=== PATIENT | male | born 2005 | race Caucasian/White ===

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

== ENCOUNTER 2023-02-12 12:50 | Emergency (ER) | payer OTHER, SELFPAY ==
--- NOTE | ~2023-02-12 | XR_ITS ---
EXAMINATION: XR WRIST, LEFT XR HAND, LEFT CLINICAL INFORMATION: Pain. Injury. COMPARISON: None available. TECHNIQUE: Scaphoid view of the left wrist and PA, lateral, and oblique views of the left hand. FINDINGS: LEFT WRIST: The bones and soft tissues appear unremarkable. No fracture identified. Alignment is anatomic. Joint spaces appear maintained. No erosions or soft tissue calcifications. LEFT HAND: The bones and soft tissues appear unremarkable. No fracture identified. Alignment is anatomic. Joint spaces appear maintained. No erosions or soft tissue calcifications. XR/XR hand wrist LT IMPRESSION: Normal plain film examinations of the left hand and wrist.
[2023-02-12 13:03] VITALS: BP 148/100; BP 165/96; PULSE 80; RESP 16; TEMP 36.6; O2SAT 98; O2SAT 99; BMI 34.1
--- NOTE | 2023-02-12 13:53 | PC.NURSE ---
pt asked tech if he could go outside to smoke, tech consulted with this nurse and I stated he was not allowed to go smoke as his c-spine collar has not be cleared and removed by a provider yet, this was communicated to the patient. upon walking by the patients room it was noticed that the patient was no longer in the room. the patient had not yet been evaluated by the provider, will notify charge.
--- NOTE | 2023-02-12 13:59 | PC.NURSE ---
security came to this nurse and stated she had stopped a patient who had a neck brace on who was going outside, security stated she didnt feel that he was cleared to go outside, pt went outside anyway, pt then came back into the hospital- security asked them to wait while they came to speak with nursing staff however, while doors were open patient walked back into [facility] room with their parent. this nurse went into the room and spoke with the patient and told him it was unacceptable for him to leave to smoke a cigarette after staff had told him he could not leave considering he was complaining of 10/10 neck pain and in a collar. the father who was now in the room also stated tot he patient that he knew better. currently the patient is a&ox3, ambulates independently with a steady gait, all of the patients extremities are moving independently, neck brace still intact, pt verbally stated that he will not leave to smoke and stated he understands the consequences of ambulating with neck pain and in c-spine precautions/neck brace.
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
--- NOTE | 2023-02-12 15:20 | PC.NURSE ---
abrasion on right forarm bandaged with non-adherent pad and gauze wrap.
== END 2023-02-12 15:59 | disposition home or self-care (01) ==
PROVIDERS: Emergency Provider Emergency Medicine
DX: S60.512A Abrasion of left hand, initial encounter (principal); S63.92XA Sprain of unspecified part of left wrist and hand, initial encounter; M25.532 Pain in left wrist; V23.49XA Other motorcycle driver injured in collision with car, pick-up truck or van in traffic accident, initial encounter; Y93.9 Activity, unspecified; Y92.410 Unspecified street and highway as the place of occurrence of the external cause; Y99.9 Unspecified external cause status; Z79.899 Other long term (current) drug therapy
CPT/HCPCS: 73110; 73130; 99283

== ENCOUNTER 2024-08-26 18:20 | Emergency (ER) | payer OTHER, SELFPAY ==
[2024-08-26 18:28] VITALS: BP 160/90; PULSE 84; O2SAT 99
[2024-08-26 18:34] VITALS: BP 135/76; PULSE 59; RESP 16; TEMP 36.1; O2SAT 99; BMI 36.2
--- NOTE | 2024-08-26 18:34 | ED.LOWEXIN ---
HPI - Extremity Injury (Lower) General Chief Complaint: Extremity Injury, Lower Stated Complaint: gout in R foot, swollen, 06/01 Time Seen by Provider: 08/26/24 18:32 Source: patient, EMS, RN notes reviewed and old records reviewed Mode of arrival: EMS History of Present Illness ED Provider: Ryann Munoz PA-C HPI Narrative: 19yo M w/PMHx gout, HTN, anxiety, c/o right foot pain & swelling x 3 days. Admits pain is similar to prior gout flare. Denies known injury/trauma, fall, numbness, tingling, fever. Took OTC medications w/o relief. Related Data Previous Rx's ?Medication ?Instructions ?Recorded cephalexin 500 mg capsule 500 mg PO BID #14 caps 04/07/22 sulfamethoxazole 800 1 tab PO BID #14 tabs 04/07/22 mg-trimethoprim 160 mg tablet (Bactrim DS) naproxen 500 mg tablet 500 mg PO BID PRN pain 10 days #20 08/26/24 tabs prednisone 20 mg tablet 40 mg (2 x 20 mg) PO DAILY 5 days 08/26/24 #10 tabs Allergies Allergy/AdvReac Type Severity Reaction Status Date / Time No Known Allergies Allergy Verified 08/26/24 18:35 Review of Systems Review of Systems: Yes all other systems are reviewed and are negative Constitutional: Constitutional: Reports as per [facility] Past Medical History Attestation statement: The following information was validated with the patient. Source: old records reviewed Social History Social History Alcohol intake: current Alcohol intake frequency: holidays/special occasions only Physical Exam Vital Signs: Vital Signs: Last Vital Signs Temp 96.9 F 08/26/24 18:34 Pulse 59 08/26/24 18:34 Resp 16 08/26/24 18:34 BP 135/76 08/26/24 18:34 Pulse Ox 99 08/26/24 18:34 O2 Del Method Room Air 08/26/24 18:34 BMI result Body Mass Index 36.2 Const: General: cooperative, healthy appearing and no acute distress Orientation/consciousness: patient oriented x3 Limitations: no limitations HEENT: Head: Yes normal to inspection and Yes atraumatic Ears: hearing grossly normal bilaterally General nose exam: Normal external nose present Face and sinus: Yes normal facial exam Eyes: General: appearance normal, both eyes and all related structures EOM: EOMs intact bilaterally Neck: Neck: Yes normal visual inspection and Yes no meningeal signs Resp: Effort & Inspection: normal respiratory effort and no respiratory distress Cardio: Rate: regular rate Skin: Rashes: no rashes Wounds: no wounds Neuro: General: patient oriented x3, tone normal and no meningeal signs Cranial nerves: Yes CN's II-XII intact bilaterally Gait exam (Neuro): Normal gait present Extrem: Other: right foot with appreciable swelling > great toe with faint erythema. +ttp, no warmth, +pain w/ROM, NV intact no pitting edema Medical Decision Making Medical Decision Making MDM Narrative: 19yo M w/PMHx gout, HTN, anxiety, c/o right foot pain & swelling x 3 days. On exam vital signs stable, NAD, nontoxic appearing, physical exam as noted above consistent with gout. Low suspicion for fracture, cellulitis, septic joint/arthritis, DVT Plan: Gout treatment, PCP/rheumatology follow-up. X-ray offered however patient declined Please refer to course for remaining clinical decision making, interpretation of labs/imaging results, and discussions with consultants and/or family members. Results discussed with patient including worrisome signs and symptoms and strict return precautions, and when to return to the emergency department. They verbalized understanding and feel safe for discharge at this time. Differential Diagnosis Differential Diagnoses: The differential diagnosis associated with the presentation includes As above Independent Interpretation I performed an independent interpretation of an: Plain X-Ray Radiology Impression Discussion of test interpretation with radiology: I have reviewed the radiologist's reading. External Record Review External record reviewed: Inpatient record, Office record, Outpatient record, Prior outpatient labs, Prior outpatient radiology, Primary care record and Outside ED record Tests considered The following testing was considered but not selected: As above Prescription Management I considered prescription management with: Pain Medication and Antibiotic Chronic Conditions Patient?s care impacted by: Other Social Determinants Patient?s care significantly limited by Social Determinants of Health including: Other Social Determinant of Health Discharge Plan Discharge Clinical Impression: Gout Patient Disposition: Home, Self-Care Instructions: Low Purine Diet (ED), Gout (ED) Additional Instructions: Please take naproxen and prednisone as prescribed until completion. Naproxen is similar to ibuprofen/Motrin/Aleve, do not take both medications, please only take 1 and please take with food In addition take Tylenol If her symptoms persist or worsen, follow up becomes increasingly swollen, red, discolored, looks infected return to the ED Prescriptions: New prednisone 20 mg tablet 40 mg PO DAILY 5 Days Qty: 10 0RF naproxen 500 mg tablet 500 mg PO BID PRN (Reason: pain) 10 Days Qty: 20 0RF No Action sulfamethoxazole-trimethoprim [Bactrim DS] 800-160 mg tablet 1 tab PO BID Qty: 14 0RF cephalexin 500 mg capsule 500 mg PO BID Qty: 14 0RF Referrals: [facility] [Provider Group] Print Language: Citizen Of [place]
--- OUTSIDE RECORDS SUMMARY | 2024-08-26 18:46 | XMS_ITS ---
Author Organization [employer] endband cutter hand KONZA Care Team Providers Care Tile Edger Name Role Phone Karen Blanchard MD Primary Care Provider Encounters Encounter Date Encounter Type Encounter Diagnosis Care Provider Facility Start: 03-05-2021 12:00-0400 End: 07-26-2024 02:56-0500 Orders Only Ирина Alcaraz Employee Representative Work Phone: [facility] Department of Urology, [place] Payers Date Payer Normalized Payer Medicaid [id number] Plan of Treatment Date Care Activity Detail Author Start: 04-23-2024 Administration of influenza vaccine INFLUENZA (#1) [facility] Start: 04-23-2024 COVID-19 Vaccine ( season) COVID-19 Vaccine ( season) [facility] Start: 02-10-2016 HIV screening ADOLESCENT HIV SCREENING [facility] Social History Date Type Detail Facility Start: 09-19-2021 End: 05-07-2023 History of Social function [facility] Start: 09-19-2021 End: 05-07-2023 Tobacco use panel [facility] History of tobacco use Current smoker [facility] Anything else about your child you'd like help with? Not on file [facility] Additional Source Comments Care Teams (unrecognized sec tion and content) Tile Edger Relationship Specialty Start Date End Date Karen Blanchard MD [address] [place] [address] [address] [place] [address] PCP - General General Pediatrics 09/30/20 Tile Edger Relationship Specialty Start Date End Date Karen Blanchard MD [address] [address] PCP - General General Pediatrics 09/30/20 Tile Edger Relationship Specialty Start Date End Date Karen Blanchard MD [address] [address] PCP - General General Pediatrics 09/30/20 Tile Edger Relationship Specialty Start Date End Date Karen Blanchard MD [address] [facility] [address] [place] [address] PCP - General General Pediatrics 09/30/20 This clinical document has been generated using [employer] software that has been certified by the Office of the National Coordinator for Health Information Technology (ONC 15.99.04.3023.Diam.[id number]) and the National Committee for Major Sales Associate (NCQA, as an eMeasure certified technology). FOR RECORDS PERTAINING TO PATIENTS WHO ARE OR HAVE BEEN ENROLLED IN A CHEMICAL DEPENDENCY/SUBSTANCEABUSE PROGRAM, SOME INFORMATION MAY BE OMITTED. This clinical summary was aggregated from multiple sources. Caution should be exercised in using it in the provision of clinical care. This summary normalizes information from multiple sources, and as a consequence, information in this document may materially change the coding, format and clinical context of patient data. In addition, data may be omitted in some cases. CLINICAL DECISIONS SHOULD BE BASED ON THE PRIMARY CLINICAL RECORDS. [employer] provides no warranty or guarantee of the accuracy or completeness of information in this document.The following information is based on time limited clinical information
== END 2024-08-26 18:48 | disposition home or self-care (01) ==
PROVIDERS: Emergency Provider Emergency Medicine Emergency Medical Services; PCP Student in an Organized Health Care Education/Training Program
DX: M10.9 Gout, unspecified (principal); M79.671 Pain in right foot
CPT/HCPCS: 99281; 99283

== ENCOUNTER 2024-11-23 23:34 | Emergency (ER) | payer OTHER, SELFPAY ==
[2024-11-23 23:41] VITALS: BP 128/88; PULSE 106; O2SAT 98
--- NOTE | 2024-11-23 23:53 | MHC.EDTECH ---
patient changed over in family room, [facility] patient
--- NOTE | 2024-11-23 23:55 | ED_ITS ---
HPI - Psych General Chief Complaint: Psychiatric Symptoms Stated Complaint: SI no plan, ETOH Time Seen by Provider: 11/23/24 23:43 Source: patient and EMS Mode of arrival: EMS Limitations: no limitations History of Present Illness ED Provider: Dr. Marizol Hunt HPI Narrative: Patient comes to the emergency room via ambulance. According to the patient, he had a disagreement earlier today with his girlfriend. Patient states that he does have history of anxiety and depression but has never had any suicidal ideation. Patient states that he is unclear what made his girlfriend/ ex- fiance say that he was suicidal. Patient denies any physical altercations. Patient's has scratches in his left forearm, patient states that that is from playing with his dog. according to patient's triage note, EMS reported that patient was found with a large kitchen knife, and reportedly drank 4-5 drinks sober a course of a few hours. Related Data Previous Rx's ?Medication ?Instructions ?Recorded cephalexin 500 mg capsule 500 mg PO BID #14 caps 04/07/22 sulfamethoxazole 800 1 tab PO BID #14 tabs 04/07/22 mg-trimethoprim 160 mg tablet (Bactrim DS) naproxen 500 mg tablet 500 mg PO BID PRN pain 10 days #20 08/26/24 tabs prednisone 20 mg tablet 40 mg (2 x 20 mg) PO DAILY 5 days 08/26/24 #10 tabs Allergies Allergy/AdvReac Type Severity Reaction Status Date / Time No Known Allergies Allergy Verified 11/24/24 00:34 Review of Systems 2 Review of Systems: Constitutional : No Weight loss, No Fever, No Chills, No Night Sweats, No Fatigue, No Malaise ENT/Mouth : No Hearing loss, No Ear Pain, No Nasal Congestion, No Sinus Pain, No Hoarseness, No sore throat, No Rhinorrhea, No Swallowing Difficulty Eyes: No Eye Pain, No Swelling, No Redness, No Foreign Body, No Discharge, No Vision Changes Cardiovascular : No Chest Pain, No SOB, No Dyspnea on Exertion, No Orthopnea, No Edema, No Palpitations Respiratory : No Cough, No Sputum, No Wheezing, No Smoke Exposure, No Dyspnea Gastrointestinal : No Nausea, No Vomiting, No Diarrhea, No Constipation, No abdominal Pain, No Hematochezia, No Melena Genitourinary : no irregular bleeding, No Dysuria, No Urinary Frequency, No Hematuria, No Urinary Incontinence, No Urgency, No Flank Pain, No Urinary Flow Changes, No Hesitancy Musculoskeletal : No joint pain, No Myalgias, No Joint Swelling Skin : Complaining of scratches in the forearm, denies being lacerations Neuro : No Weakness, No Numbness, No Paresthesias, No Loss of Consciousness, No Dizziness, No Headache Psych : No Anxiety/Panic, No Depression, No SI/HI/AH/VH, No Social Issues, Heme/Lymph: No Bruising, No Bleeding,No Lymphadenopathy Endocrine : No Polyuria, No Polydipsia, No Temperature Intolerance [facility] Past Medical History Medical History Anxiety and depression Social History Social History Alcohol intake: current Alcohol intake frequency: holidays/special occasions only Alcohol type: beer and hard liquor Physical Exam 2 Vital Signs: Vital Signs: Last Vital Signs Temp 98.6 F 11/24/24 00:15 Pulse 77 11/24/24 00:15 Resp 17 11/24/24 00:15 BP 148/80 H 11/24/24 00:15 Pulse Ox 96 11/24/24 00:15 O2 Del Method Room Air 11/24/24 00:15 BMI result Body Mass Index 33.3 Const: Other: Appearance: Alert. Oriented X3. No acute distress. Eyes: Pupils equal, round and reactive to light. ENT: Pharynx normal. Neck: Normal inspection. Neck supple. No lymph nodes noted. No crepitus CVS: Normal heart rate and rhythm. Pulses normal. Normal S1 and S2 Respiratory: No respiratory distress. Breath sounds normal. No Wheezing. No rales Abdomen: Soft and nontender. No rigidity. No distention. Skin: Skin warm and dry. Normal skin color. Normal skin turgor. patient has superficial scratches in the left forearm. Extremities: No lower extremity edema. No Lacerations. No Rash Neuro: Oriented X 3. No motor deficit. No sensory deficit. Moving all extremities. No slurred speech. CN 2 through 12 grossly intact Psych: calm, cooperative, normal affect Course Course Course Narrative: patient is calm, cooperative, alert and oriented x3, clinically sober patient states that he is not sure what Made his ex-fiance state that he was suicidal. On physical exam, patient does have scratches in the left forearm, they seem to be fairly consistent with animals scratches, they are not thin linear cut toussaint by a knife patient is adamant that he is not suicidal or suicidal and he is also adamant that he did not make any SI statements. all of patient's labs pending care team consult pending. However, at this time, there is no indication to put the patient on a Section 12 Medical Decision Making Medical Decision Making MDM Narrative: patient's nurse was able to get in touch with the patient's ex-girlfriend. According to the patient's ex-girlfriend, she was concerned because he gave him all the money he has, a total of 200 dollars. She was concerned that he was saying goodbye. However, the patient states that the reason that he gave her 200 dollars, it is because he is so tired of his ex-girlfriend , she keeps calling him so many times that he can not keep up with it, and does not want to deal anymore with her specifically. So, he told her he has given her all of his money and to never bother him again. Patient states that he admits that he was emotional, crying but not suicidal or homicidal. Patient states that he is ready to move on. Patient just wants his ex-girlfriend to not communicate with him anymore. patient admits that he has been depressed and anxious, patient has a therapist. But he is adamant that he is not suicidal or homicidal Patient is completely alert and oriented x3, coherent, clinically sober. at this time, there is no reason to keep the patient on a Section 12 in patient will like to be discharged. My interpretation of labs: Patient's hematology and chemistry within normal limits, U tox negative, ETOH 133. Patient as mentioned above is completely coherent, ambulatory with steady state, clinically sober Differential Diagnosis Differential Diagnoses: The differential diagnosis associated with the presentation includes ( anxiety, depression, relationship problems) Lab Data [facility] Lab Attestation statement: I reviewed the patient's lab results. 11/24/24 00:16 11/24/24 00:15 Labs: Lab Results 11/24/24 11/24/24 Range/Units 00:16 00:17 WBC 10.1 (4.8-10.8) X10*3/uL RBC 5.32 (4.60-5.80) X10*6/uL Hgb 16.4 (14.0-18.0) g/dl Hct 44.7 (42.0-52.0) % MCV 84.0 (80.0-98.0) fL MCH 30.8 (27.0-33.0) pg MCHC 36.7 H (31.0-36.0) g/dl RDW 11.9 (11.0-16.0) % Plt Count 257 (160-400) X10*3/uL MPV 10.6 (9.4-12.4) fL Immature Gran % (Auto) 0.3 (0.0-0.4) % Neut % (Auto) 53.6 (45-73) % Lymph % (Auto) 27.8 (20-40) % Talbot % (Auto) 8.4 (2-11) % Eos % (Auto) 8.9 H (0-4) % Baso % (Auto) 1.0 (0-2) % Lymph # (Auto) 2.8 (1.2-4.9) X10*3/uL Talbot # (Auto) 0.9 (0.1-1.2) X10*3/uL Eos # (Auto) 0.9 H (0.0-0.4) X10*3/uL Baso # (Auto) 0.1 (0.0-0.2) X10*3/uL Abs Immat Gran (auto) 0.03 (0.00-0.03) X10*3/uL Absolute Neuts (auto) 5.4 (2.0-8.3) x10*3/uL Absolute Nucleated RBC 0.000 (0.0-0.012) X10*3/uL Nucleated RBC % (auto) 0.0 (0.0-0.2) /100WBC Urine Opiates Screen Not Detected (Not Detect) Ur Buprenorphine Scrn Not Detected (Not Detect) ng/mL Ur Oxycodone Screen Not Detected (Not Detect) ng/mL Urine Methadone Screen Not Detected (Not Detect) ng/mL Urine Fentanyl Screen Not Detected (Not Detect) Ur Barbiturates Screen Not Detected (Not Detect) Ur Phencyclidine Scrn Not Detected (Not Detect) Ur Amphetamines Screen Not Detected (Not Detect) U Benzodiazepines Scrn Not Detected (Not Detect) Urine Cocaine Screen Not Detected (Not Detect) U Marijuana (THC) Screen Not Detected (Not Detect) Discharge Plan Discharge Clinical Impression: Anxiety Patient Disposition: Home, Self-Care Instructions: Anxiety (ED) Additional Instructions: Please follow-up with your primary care physician tomorrow. If you have any worsening or new symptoms, please return to the emergency room or call 911 Prescriptions: No Action sulfamethoxazole-trimethoprim [Bactrim DS] 800-160 mg tablet 1 tab PO BID Qty: 14 0RF cephalexin 500 mg capsule 500 mg PO BID Qty: 14 0RF prednisone 20 mg tablet 40 mg PO DAILY 5 Days Qty: 10 0RF naproxen 500 mg tablet 500 mg PO BID PRN (Reason: pain) 10 Days Qty: 20 0RF Interventions: [place]-Suicide Risk Severity Scale Last Done: 11/24/24 00:41 Print Language: Maori
[2024-11-24 00:15] VITALS: BP 148/80; PULSE 77; RESP 17; TEMP 37; O2SAT 96; BMI 33.3
[2024-11-24 00:23] LABS: MANUAL DIFF FLAG NO
[2024-11-24 00:24] LABS: Basophils Absolute Auto 0.1 X10*3/uL (0.0-0.2); Eosinophils Absolute Auto 0.9 X10*3/uL (0.0-0.4); Eosinophils Percent Auto 8.9 % (0-4); Hematocrit 44.7 % (42.0-52.0); Hemoglobin 16.4 g/dl (14.0-18.0); Imm Gran Abs Auto 0.03 X10*3/uL (0.00-0.03); Imm Gran Pct Auto 0.3 % (0.0-0.4); Lymphocytes Absolute Auto 2.8 X10*3/uL (1.2-4.9); Lymphocytes Percent Auto 27.8 % (20-40); Mean Corpuscular HGB Conc 36.7 g/dl (31.0-36.0); Mean Corpuscular Hemoglobin 30.8 pg (27.0-33.0); Mean Platelet Volume 10.6 fL (9.4-12.4); Monocytes Absolute Auto 0.9 X10*3/uL (0.1-1.2); Monocytes Percent Auto 8.4 % (2-11); Neutrophils Absolute Auto 5.4 x10*3/uL (2.0-8.3); Neutrophils Percent Auto 53.6 % (45-73); Platelet Count 257 X10*3/uL (160-400); Red Blood Count 5.32 X10*6/uL (4.60-5.80); Red Cell Distribution Width 11.9 % (11.0-16.0); White Blood Count 10.1 X10*3/uL (4.8-10.8)
[2024-11-24 00:34] LABS: Amphetamine Screen Urine Not Detected (Not Detect); Barbiturates, Urine Not Detected (Not Detect); Benzodiazepines Screen Urine Not Detected (Not Detect); Buprenorphine Scr Not Detected (Not Detect); Cannabinoid Screen Urine Not Detected (Not Detect); Cocaine Screen Urine Not Detected (Not Detect); Fentanyl, urine Not Detected (Not Detect); Methadone Screen, Urine Not Detected (Not Detect); Opiate Screen Urine Not Detected (Not Detect); Oxycodone Screen Urine Not Detected (Not Detect); Phencyclidine Screen Urine Not Detected (Not Detect)
[2024-11-24 00:45] LABS: Alanine Aminotransferase 72 U/L (0-40); Albumin Level 4.3 g/dL (3.5-5.0); Alkaline Phosphatase 67 U/L (39-117); Anion Gap 16 (12-20); Aspartate Amino Transferase 37 U/L (5-37); Bilirubin Direct 0.1 mg/dL (0.0-0.5); Bilirubin Total 0.4 mg/dL (0.0-1.0); Blood Urea Nitrogen 13 mg/dL (9-16); Calcium 9.3 mg/dL (8.4-10.2); Carbon Dioxide 24 mmol/L (22-29); Chloride 108 mmol/L (96-108); Creatinine Clr Calc Pharmacy 215.7; Estimated Glomerular Filt Rate > 60; Ethanol 133 mg/dL; Glucose Random 124 mg/dL (60-115); Potassium 3.5 mmol/L (3.3-5.1); Sodium 144 mmol/L (135-145)
[2024-11-24 01:04] VITALS: BP 148/80; PULSE 77; RESP 17; TEMP 37; O2SAT 96
== END 2024-11-24 01:06 | disposition home or self-care (01) ==
PROVIDERS: Emergency Provider Emergency Medicine
DX: F41.1 Generalized anxiety disorder (principal); F33.1 Major depressive disorder, recurrent, moderate; R45.851 Suicidal ideations; Z51.81 Encounter for therapeutic drug level monitoring
CPT/HCPCS: 36415; 80048; 80076; 80307; 85025; 99284

== ENCOUNTER 2025-07-26 | Emergency (ER) | payer OTHER, SELFPAY ==
--- OUTSIDE RECORDS SUMMARY | 2020-04-18 04:30 | XMS_ITS | Continuity of Care Document ---
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 Name Role Phone Georges Shaffer MD Unavailable U navailable Allergies, Adverse Reactions, Alerts Substance Reaction Status Criticality No Known Allergies Active No Inform ation Medications Medication Instructions Dosage Effective Dates (start - stop) Status Comments ibuprofen 400 mg tablet 1 tablet by Oral route every 4 to 6 hours prn pain for ankle injury - Active Procedures Procedure Date Void Encounter Void Encounter OFFICE/OUTPATIENT VISIT, EST SBIRT SCREEN NEGATIVE AMNT PAIN NOTED; NONE PRSNT MED LIST DOCD IN RD DIAST BP < 80 MM HG SYST BP LT 130 MM HG TOBACCO USE, SMOKING, ASSESS DEPRESSION SCREENING CURRENT TOBACCO SMOKER TOBACCO NON-USER AMNT PAIN NOTED; NONE PRSNT MED LIST DOCD IN RCRD DIAST BP < 80 MM HG DIAST BP 80-89 MM HG SYST BP GE 130 - 139MM HG DIAST BP < 80 MM HG SBIRT SCREEN NEGATIVE Other Health OFFICE/OUTPATIENT VISIT, EST URINALSIS AUTO W SCOPE REFERRAL LAB AMNT PAIN NOTED; NONE PRSNT MED LIST DOCD IN RCRD DEPRESSION SCREENING TOBACCO NON-USER DIAST BP < 80 MM HG SYST BP LT 130 MM HG SBIRT SCREEN NEGATIVE Other Health VISUAL ACUITY SCREEN HEMOGLOBIN CAPILLARY BLOOD DRAW URINALYSIS NONAUTO W/O SCOPE PREV VISIT, EST, AGE 12-17 IMMUNIZATION ADMIN IMMUNIZATION ADMIN, EACH ADD HEP A VACCINE PED ADOL 2 DOSE VFC Meningococcal Vaccine IM VFC AMNT PAIN NOTED; NONE PRSNT DEPRESSION SCREENING TOBACCO NON-USER MED LIST DOCD IN RD SYST BP GE 130 - 139MM HG DIAST BP 80-89 MM HG SBIRT SCREEN NEGATIVE Other Health OFFICE/OUTPATIENT VISIT, EST OFFICE/OUTPATIENT VISIT, EST AMNT PAIN NOTED; NONE PRSNT MED LIST DOCD IN RCRD SYST BP LT 130 MM HG DIAST BP < 80 MM HG Other Health Intraoral-Periapical Each Additional Luis m Intraoral-Periapical First Film 018 Bitewings-Four Films Periodic Oral Evaluation-Established Pat ient CARIES ASSESS LOW OFFICE/OUTPATIENT VISIT, EST TOBACCO NON-USER SYST BP GE 130 - 139MM HG DIAST BP < 80 MM HG Other Health Prophylaxis-Adult Topical Fluoride Varnish; Therapeutic Ap plication Oral Hygiene Instructions Office Visit For Observation (During Reg ularly [facility] OFFICE/OUTPATIENT VISIT, EST Other Health Other Health VISUAL ACUITY SCREEN HEMOGLOBIN CAPILLARY BLOOD DRAW URINALYSIS NONAUTO W/O SCOPE PREV VISIT, EST, AGE 12-17 AMNT PAIN NOTED; NONE PRSNT SYST BP LT 130 MM HG COMPREHEN METABOLIC PANEL LIPID PANEL CBC W/AUTO DIFF WBC ASSAY OF GAMMAGLOBULIN IGE ALLERGEN SPECIFIC IGE TSH ASSAY OF FREE THYROXINE Referral 2017 Other Health OFFICE/OUTPATIENT VISIT, EST ROUTINE VENIPUNCTURE Periodic Oral Evaluation-Established Pat ient [employer] Films Intraoral-Periapical First Film 017 Intraoral-Periapical Each Additional Luis m CARIES ASSESS LOW OFFICE/OUTPATIENT VISIT, EST Other Health SYST BP LT 130 MM HG DIAST BP < 80 MM HG Prophylaxis-Adult Flouride Application Oral Hygiene Instructions [facility] OFFICE/OUTPATIENT VISIT, EST AMNT PAIN NOTED; NONE PRSNT SYST BP LT 130 MM HG DIAST BP < 80 MM HG Periodic Oral Evaluation-Established Pat ient Intraoral-Periapical First Film 017 Intraoral-Periapical Each Additional Luis m [employer] OFFICE/OUTPATIENT VISIT, EST X-RAY EXAM OF ANKLE 2 VIEWS SYST BP >= 140 MM HG6 IT DIAST BP 80-89 MM HG Other Health Sealant-Per Tooth Sealant-Per Tooth Sealant-Per Tooth Sealant-Per Tooth Office Visit For Observation (During Reg ularly [facility] DRUG SCREEN SPEC JENNIFER OR MIL LABS PER UNI T TOBACCO NON-USER AMNT PAIN NOTED; NONE PRSNT SYST BP GE 130 - 139MM HG DIAST BP 80-89 MM HG Other Health OFFICE/OUTPATIENT VISIT, EST OFFICE/OUTPATIENT VISIT, EST Other Health OFFICE/OUTPATIENT VISIT, EST Prophylaxis-Adult Flouride Application Oral Hygiene Instructions [facility] CAPILLARY BLOOD DRAW PURE TONE HEARING TEST, AIR Other Health SBIRT SCREEN NEGATIVE PREV VISIT, EST, AGE 12-17 DEPRESSION SCREENING HEMOGLOBIN CAPILLARY BLOOD DRAW IMMUNIZATION ADMIN IMMUNIZATION ADMIN, EACH ADD HEP A VACCINE PED ADOL 2 DOSE VFC Trumenba Meningococcal B Recombinant Jul URINALYSIS NONAUTO W/O SCOPE PREV VISIT, EST, AGE 12-17 HPV VACCINE NONVALENT IM VFC 3 Dose Sche dule Periodic Oral Evaluation-Established Pat ient [employer]wings-[employer] Films Intraoral-Periapical First Film - 016 Intraoral-Periapical Each Additional Luis m CARIES ASSESS LOW OFFICE/OUTPATIENT VISIT, EST Other Health TOBACCO USE, SMOKING, ASSESS AMNT PAIN NOTED; NONE PRSNT SYST BP LT 130 MM HG DIAST BP < 80 MM HG OFFICE/OUTPATIENT VISIT, EST Other Health ROUTINE VENIPUNCTURE GENERAL HEALTH PANEL LIPID PANEL ASSAY OF FREE THYROXINE Referral 2015 OFFICE/OUTPATIENT VISIT, EST Other Health OFFICE/OUTPATIENT VISIT, EST OFFICE/OUTPATIENT VISIT, EST AMNT PAIN NOTED; NONE PRSNT SYST BP LT 130 MM HG DIAST BP < 80 MM HG Other Health OFFICE/OUTPATIENT VISIT, EST Other Health MEDICAID BEHAVIORAL VISIT Comprehensive Oral Evaluation-New [place] Est ablished P Panoramic Film Bitewings-Two Films Intraoral-Periapical First Film 016 Intraoral-Periapical Each Additional Luis m Dental New Patient Tracking MEDICAID BEHAVIORAL VISIT Other Health SBIRT SCREEN NEGATIVE PURE TONE HEARING TEST, AIR HEMOGLOBIN WITH SCHOOL PE URINALYSIS NONAUTO W/O SCOPE PREV VISIT, EST, AGE 12-17 PURE TONE HEARING TEST, AIR Other Health OFFICE/OUTPATIENT VISIT, EST AMNT PAIN NOTED; NONE PRSNT SYST BP LT 130 MM HG DIAST BP < 80 MM HG OFFICE/OUTPATIENT VISIT, NEW Advance Directives Directive Yes / No Effective Date File Name No Information Encounters Encounter Description Practice Location Reason(s) For Visit Diagnoses Date Provider Providers Copied on Encounter [facility], [address] [place] [address], [id number] , [facility] No Information 0 Deena De La Cruz. [address] [place] [address], [id number], [place]. tel:[phone] [facility], [address] [place] [address], [id number] , [facility] ADD/ADHD (chief complaint) BMI pediatric, greater than or equal to 95% for ageDietary counseling and surveillanceExe rcise counselingAtten tion-deficit hyperactivity disorder, combined typeEssential (primary) hypertension 9 No Information OFFICE/OUTPA TIENT VISIT, [facility], [address] [place] [address], [id number] , [facility] No Information No Information OFFICE/OUTPA TIENT VISIT, [facility], [address] [place] [address], [id number] , [facility] ADD/ADHD (chief complaint) Dietary counseling and surveillanceExe rcise counselingBMI pediatric, greater than or equal to 95% for ageAttention-de ficit hyperactivity disorder, combined typeNicotine dependence, other tobacco product, uncomplicatedMa rijuana abuse with intoxicationEss ential (primary) hypertension 9 No Information [facility], [address] [place] [address], [id number] , [facility] Proteinuria, unspecified No Information PREV VISIT, EST, AGE 12-17 [facility], [address] [place] [address], [id number] , [facility] Well child (chief complaint) Encntr for routine child health exam w/o abnormal findingsBMI pediatric, greater than or equal to 95% for ageDietary counseling and surveillanceExe rcise counselingProte inuria, unspecifiedEsse ntial (primary) hypertensionAtt ention-deficit hyperactivity disorder, combined type No Information [facility], [address] [place] [address], [id number] , [facility] Attention-defic it hyperactivity disorder, combined typeEssential (primary) hypertension 9 No Information OFFICE/OUTPA TIENT VISIT, [facility], [address] [place] [address], [id number] , [facility] ADD/ADHD (chief complaint) BMI pediatric, greater than or equal to 95% for ageAttention-de ficit hyperactivity disorder, combined typeEssential (primary) hypertensionNon adherence to medical treatment 8 No Information OFFICE/OUTPA TIENT VISIT, [facility], [address] [place] [address], [id number] , [facility] ADD/ADHD (chief complaint) BMI pediatric, greater than or equal to 95% for ageAttention-de ficit hyperactivity disorder, combined typeEssential (primary) hypertension 8 No Information [facility], [address] [place] [address], [id number] , [facility] Encounter for dental exam and cleaning w/o abnormal findings 8 No Information OFFICE/OUTPA TIENT VISIT, [facility], [address] [place] [address], [id number] , [facility] ADD/ADHD (chief complaint)BP check (chief complaint) BMI pediatric, greater than or equal to 95% for ageAttention-de ficit hyperactivity disorder, combined typeEssential (primary) hypertension 8 No Information [facility], [address] [place] [address], [id number] , [facility] Encounter for dental exam and cleaning w/o abnormal findings 8 America Meza. [facility] [place], [id number], [place]. tel:[phone] OFFICE/OUTPA TIENT VISIT, [facility], [address] [place] [address], [phone] , [facility] Hypertension (chief complaint) BMI pediatric, 85% to less than 95th percentile for ageEssential (primary) hypertensionAtt ention-deficit hyperactivity disorder, combined type 8 No Information PREV VISIT, EST, AGE 12-17 [facility], [address] [place] [address], [id number] , [facility] Well child (chief complaint) BMI pediatric, greater than or equal to 95% for ageEncntr for routine child health exam w/o abnormal findingsEssenti al (primary) hypertensionMaj or depressionDieta ry counseling and surveillanceOth er specified counseling 8 No Information [facility], [address] [place] [address], [phone] , [facility] No Information 8 No Information [facility], [address] [place] [address], [id number] , [facility] No Information 8 No Information OFFICE/OUTPA TIENT VISIT, [facility], [address] [place] [address], [phone] , [facility] ADD/ADHD (chief complaint) BMI pediatric, 5th percentile to less than 85% for ageAttention-de ficit hyperactivity disorder, combined typeDepressionA llergic rhinitis due to pollen 8 No Information [facility], [address] [place] [address], [id number] , [facility] Encounter for dental exam and cleaning w/o abnormal findings 7 Gerson Varela. [address], [place], [place], [id number], [place]. tel:[phone] OFFICE/OUTPA TIENT VISIT, [facility], [address] [place] [address], [phone] , [facility] Follow Up of ADD/ADHD (chief complaint) BMI pediatric, 85% to less than 95th percentile for ageAttention-de ficit hyperactivity disorder, combined typeSleep disorder, unspecifiedOthe r allergy, initial encounter 7 No Information [facility], [address] [place] [address], [id number] , [facility] Encounter for dental exam and cleaning w/o abnormal findings 7 America Meza. [address] , [place], [place], [id number], [place]. tel:[phone] Referring Provider: Avery Nieto, [address], [place], [address] . tel:[phone] OFFICE/OUTPA TIENT VISIT, [facility], [address] [place] [address], [phone] , [place] [facility] ADD/ADHD (chief complaint) BMI pediatric, 85% to less than 95th percentile for ageAttention-de ficit hyperactivity disorder, combined typeElevated blood-pressure reading without diagnosis of HTN No Information [facility], [address] [place] [address], [id number] , [place] [facility] Encounter for dental exam and cleaning w/o abnormal findings Gerson Varela. [address], [place], [place], [id number], [place]. tel:[phone] OFFICE/OUTPA TIENT VISIT, [facility], [address] [place] [address], [phone] , [place] [facility] injury (chief complaint) Pain in right ankle and joints of right footUnspecified injury of right ankle, initial encounter No Information [facility], [address] [place] [address], [phone] , [place] [facility] Encounter for dental exam and cleaning w/o abnormal findings 7 Gerson Varela. [address], [place], [place], [id number], [place]. tel:[phone] [facility], [address] [place] [address], [phone] , [place] [facility] No Information 7 No Information OFFICE/OUTPA TIENT VISIT, [facility], [address] [place] [address], [phone] , [facility] ADD/ADHD (chief complaint) Attention-defic it hyperactivity disorder, combined typeOppositiona l defiant disorder 7 No Information OFFICE/OUTPA TIENT VISIT, EST [facility], [address] [place] [address], [phone] , [facility] Quarterly ADHD (chief complaint) Attention-defic it hyperactivity disorder, combined typeElevated blood-pressure reading without diagnosis of HTN 7 No Information [facility], [address] [place] [address], [id number] , [facility] Encounter for dental exam and cleaning w/o abnormal findings 7 America Meza. [address] [place] [address], [place], [place], [id number], [place]. tel:[phone] Referring Provider: Avery Nieto, [address], [place], [address] . tel:[phone] PREV VISIT, EST, AGE 12-17 [facility], [address] [place] [address], [phone] , [facility] ADD/ADHD (chief complaint)phy sical (chief complaint) Encntr for routine child health exam w/o abnormal findingsBMI pediatric, 85% to less than 95th percentile for ageDietary counseling and surveillanceOth er specified counselingProte inuria 6 No Information [facility], [address] [place] [address], [phone] , [facility] Encounter for dental exam and cleaning w/o abnormal findings 6 Gerson Vaerla. [address], [place], [place], [id number], [place]. tel:[phone] OFFICE/OUTPA TIENT VISIT, [address], [phone] , [facility] ADD/ADHD (chief complaint) Attention-defic it hyperactivity disorder, combined type 6 No Information OFFICE/OUTPA TIENT VISIT, [facility], [address] [place] [address], [id number] , [facility] Allergies (chief complaint) Allergic rhinitis due to pollenNasal congestionCough Postnasal dripElevated blood-pressure reading without diagnosis of HTN 6 No Information [facility], [address] [place] [address], [phone] , [facility] No Information 6 No Information [facility], [address] [place] [address], [phone] , [facility] No Information 6 No Information OFFICE/OUTPA TIENT VISIT, [facility], [address] [place] [address], [phone] , [facility] quarterly med refill ADHD (chief complaint) Attention-defic it hyperactivity disorder, combined typeOppositiona l defiant disorder 6 No Information OFFICE/OUTPA TIENT VISIT, [facility], [address] [place] [address], [phone] , [facility] ADD/ADHD (chief complaint) Attention-defic it hyperactivity disorder, combined type 6 No Information [facility], [address] [place] [address], [id number] , [facility] Oppositional defiant disorderAttenti on-deficit hyperactivity disorder, combined type 6 Cecilio Jones. [address] [place] [address], [id number], [place]. tel:[phone] [facility], [address] [place] [address], [phone] , [facility] Encounter for dental exam and cleaning w/o abnormal findings 6 Gerson Varela. [address] , [place], [place], [id number], [place]. tel:[phone] [facility], [address] [place] [address], [phone] , [facility] Oppositional defiant disorderAttenti on-deficit hyperactivity disorder, combined type 6 Cecilio Jones. [address] [place] [address], [id number], . tel:[phone] PREV VISIT, EST, AGE 12-[address], [phone] , [facility] physical (chief complaint) Attention-defic it hyperactivity disorder, combined typeEncntr for routine child health exam w/o abnormal findingsBMI pediatric, greater than or equal to 95% for age 5 No Information OFFICE/OUTPA TIENT VISIT, [address], [phone] , [facility] ADHDInsomnia, unspecified 5 No Information OFFICE/OUTPA TIENT VISIT, [address], [phone] , [facility] ADHD - Attention deficit disorder with hyperactivityOD DAsperger disorderLearnin g disabilityObese OCDAnxiety disorder 5 No Information Family History Family Member Type Diagnosis Age At Onset Sister Problem (finding) Renal disease Sister Problem (finding) behavior issues Problem (finding) Family history of hyper tension Problem (finding) Family history of prost ate cancer Problem (finding) Family history of malignant neoplasm of breast in first degree relative Problem (finding) Family history of Cance r, skin Problem (finding) Family history of malignant neoplasm of thyroid Problem (finding) Family history of Diabe michoacano mellitus Immunizations Vaccine Date Status Comments Hep A (ped/adol, 2 dose) administered Shani rce: New Immunization Record MCV4 administered Source: New Imm unization Record Hep A (ped/adol, 2 dose) administered Shani rce: New Immunization Record HPV 9 (GARDASIL/VFC) administered Source: New Immunization Record TRUMENBA (MenB) VFC administered Source: New Immunization Record Payers Payer name Insurance type Covered republican ID Authoriza tion(s) [place] [facility] [place] [id number] [place] [facility] [place] [id number] [id number] Social History Type Description Quantity Date Captured Comments Alcohol Use Details No Caffeine Use Details Tobacco Use Status No Information Smoking Status No Information Non-Smoking Tobacco Use Details : No Details Available : No Details Available Sex Male Sexual Orientation Straight or heterosexual Gender Identity Male Chief Complaint And Reason For Visit No Information Reason For Referral Reason For Referral No Information Plan Of Treatment Date Type Action Status Goal Hematocrit due Goal Well visit (14 years). Due o n due Goal Hearing screen (10-21 yr) du e Goal Vision screen (15-17 yr) due Goal ECG. Due on due Goal Hematocrit due Goal Vision screen (15-17 yr) due Goal ECG. Due on due Goal Hearing screen (10-21 yr) du e Goal Well visit (14 years). Due o n due Goal Dietary manageme nt education, guidance, and counseling completed Goal Hematocrit due Goal Well visit (15 years). Due o n due Goal ECG. Due on due Goal Vision screen (15-17 yr) due Goal Hearing screen (10-21 yr) du e Goal Dietary manageme nt education, guidance, and counseling completed Goal Hearing screen (10-21 yr) du e Goal Hematocrit due Goal Well visit (15 years). Due o n due Goal ECG. Due on due Goal Vision screen (15-17 yr) due Goal Hematocrit due Goal Well visit (15 years) due Goal Vision screen (15-17 yr) due Goal Hearing screen (10-21 yr) du e Goal ECG. Due on due Goal Dietary manageme nt education, guidance, and counseling completed Goal ECG. Due on due Goal Well visit (15 years). Due o n due Goal Well visit (15 years). Due o n due Goal ECG. Due on due Goal Dietary manageme nt education, guidance, and counseling completed Goal Diabetes screening. Due on due Goal Well visit (15 years). Due o n due Goal ECG. Due on due Goal Lifestyle education regardin g diet completed Goal ECG. Due on due Goal Diabetes screening. Due on due Goal Diabetes screening. Due on due Goal ECG. Due on due Goal Dietary manageme nt education, guidance, and counseling completed Goal ECG. Due on due Goal Diabetes screening. Due on due Goal ECG. Due on due Goal Urinalysis due Goal Diabetes screening. Due on due Goal Dietary manageme nt education, guidance, and counseling completed Goal Hematocrit due Goal Well visit (14 years) due Goal Vision screen (12-14 yr) due Goal Hearing screen (10-21 yr) du e Goal Vision screen (15-17 yr) due Goal Dietary manageme nt education, guidance, and counseling completed Goal Dietary manageme nt education, guidance, and counseling completed Goal Dietary manageme nt education, guidance, and counseling completed Goal Dietary manageme nt education, guidance, and counseling completed Goal Recommendation t o change food and drink intake completed Goal Recommendation t o change food and drink intake completed Goal Recommendation t o change food and drink intake completed Referral Ordered: Nephrology (related to Essential (primary) hypertension) ordered Referral Ordered: referred to [facility] Nephrology hypertension unclear etiology (related to Essential (primary) hypertension) ordered Referral Ordered: Lana Freire (related to Essential (primary) hypertension) ordered Referral Ordered: referred to [facility] Nephrology hypertension unclear etiology ordered Referral Referred To: [facility] [address] [place], [phone] Ordered: Referrals: hrology -Nephrology. [facility]. Evaluate and treat ordered Referral Referred To: Lana Freire [address] [facility]
# [id number] [place], [place], [phone] Ordered: Referrals: Lana Freire. Evaluate and treat ordered Referral Ordered: Referrals: Nephrology. Location: [facility] ordered Referral Ordered: X-RAY EXAM OF ANKLE 2 VIEWS Right ordered Referral Ordered: Kemar Jordan -Cardiology (related to Elevated blood-pressure reading without diagnosis of HTN) ordered Referral Ordered: Cardiology - Pediatric (related to Elevated blood-pressure reading without diagnosis of HTN) ordered Referral Ordered: Diagnostic Radiology (related to Elevated blood-pressure reading without diagnosis of HTN) ordered Referral Ordered: Referrals: Cardiology - Pediatric. Location: [place]. Consult ordered Referral [facility] [address] [facility]
[id number] [place], [place] [phone] Ordered: Referrals: Cardiology. Kemar Jordan. Evaluate and treat ordered Referral Referred To: [facility] [address] [place], [phone] Ordered: Referrals: Cardiology. [facility]. Evaluate and treat ordered Referral Referred To: [facility] [address] [place], [phone] Ordered: Referrals: Diagnostic Radiology. [facility]. Diagnostic testing ordered Referral Ordered: Referrals: Diagnostic Radiology ordered Patient Education Learning About Healthy Eating for Darshan~ completed Patient Education Stopping Smoking: After Your Visit completed Patient Education Learning About Drug Abu se and Addicti~ completed Patient Education Learning About Healthy Weight for Darshan~ completed Patient Education A Healthy Lifestyle for Your Child: A~ completed Patient Education Well Care???Tips for Te ens: After You~ completed Patient Education Well Care???Tips for Pa rents of Teens~ completed Patient Education Hyperlipidemia: After Y our Visit completed Patient Education A Healthy Lifestyle for Your Child: Af completed Patient Education Learning About High Blo od Pressure completed History Of Present Illness Encounter Date Complaint History Of Prese nt Illness ADD/ADHD Onset: 1 year ag o. The severity of the problem is moderate. The problem is worse. The behavior is described as problems at home, at school and socially. Behaviors have persisted for more than 6 months. Behaviors began before age 5 to some degree. Symptoms are not associated with lead exposure, known learning disabilities or pertinent past medical history. Aggravating factors include deadlines, distractions and tasks requiring attention to detail. Relieving factors tried include Concerta. Relevant symptoms of impulsivity include blurting out answers before questions are completed, difficulty waiting turn and often interrupting or intruding on others. Relevant symptoms of inattention include difficulty organizing tasks or activities, difficulty sustaining attention in tasks or play, not seeming to listen when spoken to directly, easily distracted by extraneous stimuli and being forgetful in daily activities. Relevant symptoms of hyperactivity include being described as on the go or driven by a motor, difficulty engaging in quiet activities, fidgeting/squirming, leaving seat when expected to remain seated and talking excessively. Pertinent negatives of inattention include avoiding or disliking tasks which require sustained mental effort. The Yomaira scale was used for follow-up rating. The scale was completed by the parent. The scale was not completed by the teacher. Additional information: Here to restart meds; off all meds over the summer; walking every day; improved eating habits; has already gotten in trouble 2x's at school ([employer]) and realizes he NEEDS meds to focus; now concern is that meds may be contributing to elevated BP. ADD/ADHD Onset: 1 year ag o. The severity of the problem is moderate. The problem is worse. The behavior is described as problems at home, at school and socially. Behaviors have persisted for more than 6 months. Behaviors began before age 5 to some degree. Symptoms are not associated with lead exposure, known learning disabilities or pertinent past medical history. Aggravating factors include deadlines, distractions and tasks requiring attention to detail. The Siloam scale was used for follow-up rating. The scale was completed by the parent. Additional information: pt not taking his medication at all for weeks now; using marijuana regularly; vaping w/ nicotine;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 mass index (BMI) pediatric, greater than or equal to 95th percentile for age Goals- perform on gr apolonia level, pay attention to classroom instruction Related to Attention-deficit hyperactivity disorder, combined type take medication as prescribed Re lated to Attention-deficit hyperactivity disorder, combined type Take blood pressure once weekly, record Related to Essential (primary) hypertension Follow a low sodium diet. Relate d to Essential (primary) hypertension continue meds, activity level Re lated to Essential (primary) hypertension Need first am urine Related to P roteinuria, unspecified please review VIS fo r information about vaccines Related to Encntr for routine child health exam w/o abnormal findings Appropriate development but over weight Related to Encntr for routine child health exam w/o abnormal findings see BMI plan for dietary advice Related to Encntr for routine child health exam w/o abnormal findings refused flu vaccine Related to E ncntr for routine child health exam w/o abnormal findings Immunes as ordered Related to En cntr for routine child health exam w/o abnormal findings Review anticipatory guidance handout for important safety, development info Related to Encntr for routine child health exam w/o abnormal findings Handout given Related to Encnt r for routine child health exam w/o abnormal findings Oral Health Discussed (15-21 yea rs) Related to Encntr for routine child health exam w/o abnormal findings Age appropriate safe ty discussed (15-21 years) Related to Encntr for routine child health exam w/o abnormal findings Age appropriate diet discussed (15-21 years) Related to Encntr for routine child health exam w/o abnormal findings Age appropriate anti cipatory guidance discussed (15-21 years) Related to Encntr for routine child health exam w/o abnormal findings sleep at least 8hrs/ night, exercise/sports daily, Related to Attention-deficit hyperactivity disorder, combined type appropriately handle conflict, anger, transitions Related to Attention-deficit hyperactivity disorder, combined type It is important and medication works best when taken as prescribed.Follow up and monitoring lab work is important to ensure child is not being harmed by medication/ treatments.please keep follow up appointments and follow up regularly- usually every 3 months if stable on medications for a chronic problem/illness/disease Related to Nonadherence to medical treatment It is important to w ork on achieving a healthy weightFollow 5-2-1 Almost None rule- FIVE servings of fruits AND veggies daily TWO Limit screen time to two hours a day or less-TV, computer, video games, tablets ONE Be active for 1 hour daily Almost None- fast food, sweet drinks, junk foodsSet weekly goals for lifestyle changes- add/increase water, exercise, wean junk foods, high calorie drinks, goal of 5 servings each of fruits and veggies.follow up in 2-3 months, sooner if desiredlabs to be done as ordered; follow up for results within 2 wks of labs being done. Related to BMI pediatric, greater than or equal to 95% for age Dietary management e ducation, guidance, and counseling Related to Body mass index (BMI) pediatric, greater than or equal to 95th percentile for age Follow a low sodium diet. Relate d to Essential (primary) hypertension Increase activity. Related to Es sential (primary) hypertension Goals fair to poor w/ achievemen t Related to Attention-deficit hyperactivity disorder, combined type sleep at least 8hrs/ night, exercise/sports daily, Related to Attention-deficit hyperactivity disorder, combined type appropriately handle conflict, anger, transitions Related to Attention-deficit hyperactivity disorder, combined type Goals- perform on gr apol[place] level, pay attention to classroom instruction, Related to Attention-deficit hyperactivity disorder, combined type It is important to t willis medication everyday Related to Attention-deficit hyperactivity disorder, combined type yearly lab work is due Related t o Attention-deficit hyperactivity disorder, combined type 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 Related to Attention-deficit hyperactivity disorder, combined type take medication as prescribed Re lated to Attention-deficit hyperactivity disorder, combined type Please return [place]- teacher in March or Apr Related to Attention-deficit hyperactivity disorder, combined type take medication as prescribed Re lated to Attention-deficit hyperactivity disorder, combined type Please return [place]a form- P arent Related to Attention-deficit hyperactivity disorder, combined type Lifestyle education regarding di et Related to Body mass index (BMI) pediatric, greater than or equal to 95th percentile for age Follow a low sodium diet. Relate d to Essential (primary) hypertension continue meds at thi s dose per cardiology visit today; pt to take meds ab Related to Essential (primary) hypertension Recommendation to exercise Relat ed to Body mass index (BMI) pediatric, greater than or equal to 95th percentile for age Increase activity. d oing great job so far. Related to Essential (primary) hypertension Discussed OHI Related to Den E ncounter for dental exam and cleaning w/o abnormal findings take BP and Saturday at home using large adult cuffif systolic (top) number 130 or greater, call the car unloader for an earlier appointment because his blood pressure if uncontrolled. 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 Related to Attention-deficit hyperactivity disorder, combined type take medication as prescribed Re lated to Attention-deficit hyperactivity disorder, combined type Reviewed OHI Related to Jermaine keen for dental exam and cleaning w/o abnormal findings Review handout on he althy eatingSet weekly goals for lifestyle changes- add/increase water, exercise, wean junk foods, high calorie drinks, goal of 5 servings each of fruits and veggies.Don't skip meals- eat breakfastIncrease physical activity-vigorous walking, take the stairs, sports, dance, play outside-Goal 1 hr., 3 times a weekGoal of 1/2 to 1 pound every two weeks is realisticReduce Screen time to less than 2 hours daily; for every 30 min of screen time, get 30 min of activityOnce a week had a no TV/Video Games/computer/tablet and do something active.follow up in 2-3 months, sooner if desired LIFESTYLE INTERVENTIONSWean/ avoid caffeine as they can worse, trigger headaches- decrease by half once a week; limit to 1 to 3 12 oz cans weekly. Soda is also a lot of empty calories.Most teens need 8-12 hours of sleep at night consistently. 6-11 year olds should get 8-9 hours nightly.drink 16-3- oz of water dailyexercise 30 minutes a day at least 3 days a week.avoid OTC medication for headaches; limit to no more than 3 days a week.practice deep breathing minimize stress and develop skills to deal with it more appropriately. Related to BMI pediatric, 85% to less than 95th percentile for age continue to check bl ood pressure once weekly at home- WRITE IT DOWN PLEASEKEEP CARDIOLOGY APPOINTMENT 11/08/2017.remember the heart is a muscle that must be exercised to stay healthycontinue to work on your nutrition and lifestyle changes. Related to Essential (primary) hypertension Dietary management e ducation, guidance, and counseling Related to Body mass index (BMI) pediatric, 85th percentile to less than 95th percentile for age Exercises education, guidance, and counseling Related to Body mass index (BMI) pediatric, 85th percentile to less than 95th percentile for age continue with medica tion and counselingfollow up 1 month. Related to Major depression Review handout on he althy eatingSet weekly goals for lifestyle changes- add/increase water, exercise, wean junk foods, high calorie drinks, goal of 5 servings each of fruits and veggies.Don't skip meals- eat breakfastIncrease physical activity-vigorous walking, take the stairs, sports, dance, play outside-Goal 1 hr., 3 times a weekGoal of 1/2 to 1 pound every two weeks is realisticReduce Screen time to less than 2 hours daily; for every 30 min of screen time, get 30 min of activityOnce a week had a no TV/Video Games/computer/tablet and do something active.follow up in 2-3 months, sooner if desiredlabs to be done as ordered; follow up for results within 2 wks of labs being done. Related to BMI pediatric, greater than or equal to 95% for age start medicationVERY IMPORTANT to keep 1 week f/u visit.The emergency room is not the best place to treat elevated blood pressure, weekly office visits are necessary to get the blood pressure, headaches and light headedness under control.decr salt intake- see handout given- use Mrs. Gonzalez or other salt substitute or fresh herbs for seasoning foodsavoid packaged, fast foodsget more physically active.follow up in 1 week- to check BP and adjust meds as needed. Related to Essential (primary) hypertension Dietary management e ducation, guidance, and counseling Related to Body mass index (BMI) pediatric, greater than or equal to 95th percentile for age Appropriate development but over weight Related to Encntr for routine child health exam w/o abnormal findings see BMI plan for dietary advice Related to Encntr for routine child health exam w/o abnormal findings return to get vaccin es due in 1-3 days (computer issues) Related to Encntr for routine child health exam w/o abnormal findings Appropriate Growth and Developme nt Related to Encntr for routine child health exam w/o abnormal findings Follow a low sodium diet. Relate d to Essential (primary) hypertension Increase activity. Related to Es sential (primary) hypertension return in 2 weeks fo r physical and new med refill Related to Attention-deficit hyperactivity disorder, combined type continue counseling Related to A ttention-deficit hyperactivity disorder, combined type take medication as prescribed Re lated to Attention-deficit hyperactivity disorder, combined type Dietary management e ducation, guidance, and counseling Related to Body mass index (BMI) pediatric, 5th percentile to less than 85th percentile for age OHI Related to Jermaine keen for dental exam and cleaning w/o abnormal findings continue current am medslabs in next 3 monthsDec for follow up and well child physcialVanderbilt to teachers Related to Attention-deficit hyperactivity disorder, combined type Dietary management e ducation, guidance, and counseling Related to Body mass index (BMI) pediatric, 85th percentile to less than 95th percentile for age Reviewed OHI Related to Jermaine keen for dental exam and cleaning w/o abnormal findings continue to exercise and work on your eating habits to promote weight loss and a healthy lifestyle. Related to Elevated blood-pressure reading without diagnosis of HTN Review handout on he somy eatingSet weekly goals for lifestyle changes- add/increase water, exercise, wean junk foods, high calorie drinks, goal of 5 servings each of fruits and veggies.Don't skip meals- eat breakfastIncrease physical activity-vigorous walking, take the stairs, sports, dance, play outside-Goal 1 hr., 3 times a weekGoal of 1/2 to 1 pound every two weeks is realisticReduce Screen time to less than 2 hours daily; for every 30 min of screen time, get 30 min of activityOnce a week had a no TV/Video Games/computer/tablet and do something active.follow up in 2-3 months, sooner if desiredlabs to be done as ordered; follow up for results within 2 wks of labs being done. Related to BMI pediatric, 85% to less than 95th percentile for age Stable on medsVander bilt to be completed by parent, and teacher (fax # on form)review the handout - ADHD tips for parents It's important to have routines, rules and clear consequencesDiet- minimize red, yellow, blue food dyes, decrease/eliminate sugar intake (ie soda, Koolaid, Gatorade)counseling may help the medication work more effectivelyfollow up 3 months, call when 7 pills left, give 24 hrs for prescription to be generated Related to Attention-deficit hyperactivity disorder, combined type Dietary management e ducation, guidance, and counseling Related to Body mass index (BMI) pediatric, 85th percentile to less than 95th percentile for age Discussed better [place] Related to D en Encounter for dental exam and cleaning w/o abnormal findings see above Related to Unspe cified injury of right ankle, initial encounter ElevateIcetake presc ribed medication for pain Related to Pain in right ankle and joints of right foot Discussed [place] Related to Den E ncounter for dental exam and cleaning w/o abnormal findings recommend pediatric psychiatric evaluation via [facility] or [facility] in [place]. Related to Oppositional defiant disorder take medication as prescribed Re lated to Attention-deficit hyperactivity disorder, combined type check BP at home vinh pedraza ultrasounddecrease salt intake, do not add salt to food- use Mrs. Gonzalez or other no-salt seasoningsincrease physical activity. Related to Elevated blood-pressure reading without diagnosis of HTN continue meds for nowfollow up 1 month Related to Attention-deficit hyperactivity disorder, combined type Reviewed OHI Related to Den E ncounter for dental exam and cleaning w/o abnormal findings Protein in the urine can indicate a problem with the kidneys or is a normal finding.Further exam of the urine is required (microscopic).Sometimes the first morning urine can help determine the cause- you may be asked to return with this sample.If the work up indicates a possible kidney problem, you will be referred to a kidney specialist (car unloader or urologist). Related to Proteinuria Review handout on he althy eatingSet weekly goals for lifestyle changes- add/increase water, exercise, wean junk foods, high calorie drinks, goal of 5 servings each of fruits and veggies.Don't skip meals- eat breakfastIncrease physical activity-vigorous walking, take the stairs, sports, dance, play outside-Goal 1 hr., 3 times a weekGoal of 1/2 to 1 pound every two weeks is realisticReduce Screen time to less than 2 hours daily; for every 30 min of screen time, get 30 min of activityOnce a week had a no TV/Video Games/computer/tablet and do something active.follow up in 2-3 months, sooner if desiredlabs to be done as ordered; follow up for results within 2 wks of labs being done. Related to BMI pediatric, 85% to less than 95th percentile for age see above Related to Dieta ry counseling and surveillance see above Related to Other specified counseling appropriate growth & development Related to Encntr for routine child health exam w/o abnormal findings Recommendation to ch j luis food and drink intake Related to Dietary counseling and surveillance Recommendation to ch j luis food and drink intake Related to Body mass index (BMI) pediatric, 85th percentile to less than 95th percentile for age Patient given jerry mast advice on benefits of physical activity Related to Body mass index (BMI) pediatric, 85th percentile to less than 95th percentile for age Handout given Related to Encnt r for routine child health exam w/o abnormal findings Oral Health Discussed (-14 yea rs) Related to Encntr for routine child health exam w/o abnormal findings Age appropriate safe ty discussed (11-14 years) Related to Encntr for routine child health exam w/o abnormal findings Age appropriate diet discussed (11-14 years) Related to Encntr for routine child health exam w/o abnormal findings Age appropriate anti cipatory guidance discussed (11-14 years) Related to Encntr for routine child health exam w/o abnormal findings Refused Flu vaccine Related to E ncntr for routine child health exam w/o abnormal findings Immunes as ordered Related to En cntr for routine child health exam w/o abnormal findings review handout given Related to Encntr for routine child health exam w/o abnormal findings anticipatory guidance per handou t Related to Encntr for routine child health exam w/o abnormal findings Dental OHI Related to Den E ncounter for dental exam and cleaning w/o abnormal findings Stable on medsreview the handout - ADHD tips for parents It's important to have routines, rules and clear consequencesDiet- minimize red, yellow, blue food dyes, decrease/eliminate sugar intake (ie soda, Koolaid, Gatorade)counseling may help the medication work more effectivelyfollow up 3 months, call when 7 pills left, give 24 hrs for prescription to be generated Related to Attention-deficit hyperactivity disorder, combined type Review handout on he althy eatingSet weekly goals for lifestyle changes- add/increase water, exercise, wean junk foods, high calorie drinks, goal of 5 servings each of fruits and veggies.Don't skip meals- eat breakfastIncrease physical activity-vigorous walking, take the stairs, sports, dance, play outside-Goal 1 hr., 3 times a weekGoal of 1/2 to 1 pound every two weeks is realisticReduce Screen time to less than 2 hours daily; for every 30 min of screen time, get 30 min of activityOnce a week had a no TV/Video Games/computer/tablet and do something active.follow up in 2-3 months, sooner if desiredlabs to be done as ordered; follow up for results within 2 wks of labs being done. Related to Elevated blood-pressure reading without diagnosis of HTN avoid allergens take medication as prescribeduse normal saline (NS) rinse or spray once dailyuse olive oil or Vaseline in nares dailywash hair/body if outside during high pollen times or playing in grasslocal honey 2-3 teaspoons daily also help allergy symptomscheck IMT, allercast, input zipcode for local pollen forecastfollow up as needed or in 3 months Related to Allergic rhinitis due to pollen see above Related to Nasal congestion see above Related to Cough see above Related to Postn princess drip Stable on medsreview the handout - ADHD tips for parents It's important to have routines, rules and clear consequencesDiet- minimize red, yellow, blue food dyes, decrease/eliminate sugar intake (ie soda, Koolaid, Gatorade)Labwork with follow up 1 month to review labs, do school med form and refills Related to Attention-deficit hyperactivity disorder, combined type Stable on medsVander bilt to be completed by parent, and teacher (fax # on form)review the handout - ADHD tips for parents It's important to have routines, rules and clear consequencesDiet- minimize red, yellow, blue food dyes, decrease/eliminate sugar intake (ie soda, Koolaid, Gatorade)counseling may help the medication work more effectivelyDCF forms completed and faxed, originals to momfollow up 1 month Related to Attention-deficit hyperactivity disorder, combined type take medication as prescribed Re lated to Attention-deficit hyperactivity disorder, combined type Related to Oppos itional defiant disorder Related to Atten tion-deficit hyperactivity disorder, combined type Discussed OHI Related to Jermaine keen for dental exam and cleaning w/o abnormal findings Discussed how to set weekly goals for lifesyle changes (ie add water, exercise, wean junk foods, high calorie drinks)pt./parent to increase physical activity weekly- reviewed handout with suggested activitieslabs to be done as ordered; f/u for results w/i 2 wks of labs being done.f/u 2-3 months, sooner if desired Related to BMI pediatric, greater than or equal to 95% for age take concerta 54 mg daily; phone report in 2 weeks; take clonidine 1 hr before bedtime; if pt is irritable, hyper, unable to sit still in afternoon (2-6pm) then give Intuniv between 1-2 pm at school- school form completed.Yomaira to be completed by parent, and teacher (fax # on form)review the handout - ADHD tips for parents It's important to have routines, rules and clear consequencesDiet- minimize red, yellow, blue food dyes, decrease/eliminate sugar intake (ie soda, Koolaid, Gatorade)counseling may help the medication work more effectivelyfollow up 3 months Related to Attention-deficit hyperactivity disorder, combined type Anticipatory Guidanc e per age- Handout given Related to Encntr for routine child health exam w/o abnormal findings Recommendation to ch j luis food and drink intake Related to Body mass index (BMI) pediatric, greater than or equal to 95th percentile for age Patient given jerry n advice on benefits of physical activity Related to Body mass index (BMI) pediatric, greater than or equal to 95th percentile for age Handout given Related to Encnt r for routine child health exam w/o abnormal findings Oral Health Discussed (11-14 yea rs) Related to Encntr for routine child health exam w/o abnormal findings Age appropriate safe ty discussed (11-14 years) Related to Encntr for routine child health exam w/o abnormal findings Age appropriate diet discussed (11-14 years) Related to Encntr for routine child health exam w/o abnormal findings Age appropriate anti cipatory guidance discussed (11-14 years) Related to Encntr for routine child health exam w/o abnormal findings Immunes as ordered Related to En cntr for routine child health exam w/o abnormal findings Limit screen time to less than 2 hrs a day Related to Encntr for routine child health exam w/o abnormal findings Take TV out of room Related to E ncntr for routine child health exam w/o abnormal findings 1 hr of physical activity daily Related to Encntr for routine child health exam w/o abnormal findings decrease sugary beverage intake Related to Encntr for routine child health exam w/o abnormal findings Appropriate Growth and Developme nt Related to Encntr for routine child health exam w/o abnormal findings teaching on medications Related to ADHD take medication as prescribed Re lated to ADHD - Attention deficit disorder with hyperactivity Assessments Type Assessment Date No Information Patient Care Teams Name Effective Dates (start - stop) Status Members No Information
--- NOTE | 2025-07-26 | ECG_ITS ---
Test Reason : CHEST PAIN Blood Pressure : */* mmHG Vent. Rate : 92 BPM Atrial Rate : 92 BPM P-R Int : 144 ms QRS Dur : 90 ms QT Int : 332 ms P-R-T Axes : 46 58 29 degrees QTcB Int : 410 ms Normal sinus rhythm Normal ECG No previous ECGs available Referred By: Generic ED Physician Electronically Signed By: JENNIE HIGH
--- NOTE | ~2025-07-26 | XR_ITS ---
CLINICAL HISTORY: cough 1 view chest x-ray Comparison: None provided Findings: Mild left basilar airspace opacity. Heart size is normal. No acute fracture. IMPRESSION: 1. Mild left basilar airspace opacity may represent pneumonia or atelectasis. This document has been electronically signed by: Sara Stewart MD on 07/26/2025 00:33:28
[2025-07-26 00:08] VITALS: BP 144/81; PULSE 98; RESP 20; TEMP 36.8; O2SAT 99; BMI 30.8
--- OUTSIDE RECORDS SUMMARY | 2025-07-26 00:33 | XMS_ITS | Encounter Summary ---
Author Organization [employer] [facility] Address [address] [facility] [address] [place] [id number] Phone Care Team Providers Care Picker Machine Operator Name Role Phone Pcp, Unknown Primary Care Provider Unavailabl e Encounter Details Date Type Department Care Team (Late st Contact Info) Description 04/17/2024 Procedure Pass [facility], Ct Scan - [address] [address] Social History Tobacco Use Types Packs/Day Years Used Date Smoking Tobacco: Never Assessed Education Answer Date Recorded Are you interested in more education? Not on roxanne e 04/18/2024 Are you concerned about learning? Not on file 04/18/2024 No 04/18/2024 No 04/18/2024 Digital Access Answer Date Recorded No 04/18/2024 No 04/18/2024 Reliable internet access at home? Not on file 04/18/2024 Device with a working camera? Not on file Sex and Gender Information Value Date Recorded Sex Assigned at Male 04/19/2024 6:24 PM EDT Legal Sex Male 9:03 PM EDT Gender Identity Male 04/19/2024 6:24 PM EDT Sexual Orientation Straight 04/19/2024 6: 24 PM EDT documented as of this encounter Functional Status * Calculated C-SSRS Risk Score (Lifetime/Recent) Answer Date of Assessment Author No Risk Indicated 04/17/2024 9:06 PM EDT Enrique De La Garza RN * [place] Suicide Severity Rating Scale (Screener/Recent Self-Report) Question Answer Date of Assessment Author 1. Wish to be (Past 1 Month) No 024 9:06 PM EDT Enrique De La Garza, RN 2. Non-Specific Active Suici lucas Thoughts (Past 1 Month) No 04/17/2024 9:06 PM EDT Crow De La Garza, RN 6. Suicidal Behavior (Lifetime) No 9:06 PM EDT Enrique De La Garza, RN documented as of this encounter Plan of Treatment Not on file documented as of this encounter Visit Diagnoses Not on filedocumented in this encounter Care Teams Picker Machine Operator Relationship Specialty Start Date End Date Pcp, Unknown PCP - General 04/17/24 documented as of this encounter Additional Source Comments The information contained in this document represents components of the legal health record. It is not the complete legal health record.[facility]
--- OUTSIDE RECORDS SUMMARY | 2025-07-26 00:33 | XMS_ITS | Clinical Summary ---
Author Organization [employer] [facility] Address [address] [place] [phone] Phone Care Team Providers Care Supervisor Keymodule Assembly Name Role Phone Pcp, Unknown Primary Care Provider Unavailabl e Allergies No known active allergies Medications No known medications Social History Tobacco Use Types Packs/Day Years [...] with a working camera? Not on file Intimate Partner Violence Answer Date R ecorded Are you denied basic needs s uch as food, clothing, or medical care? No 05/31/2024 In the past 12 months have y ou been in a relationship with a person who hurts, threatens, or tries to control you? No 05/31/2024 Are you denied basic needs s uch as food, clothing, or medical care? No 05/31/2024 In the past 12 months have y ou been in a relationship with a person who hurts, threatens, or tries to control you? No 05/31/2024 Sex and Gender Information Value Date Recorded Sex Assigned at Male 04/19/2024 6:24 PM EDT Legal Sex Male 9:03 PM EDT Gender Identity Male 04/19/2024 6:24 PM EDT Sexual Orientation Straight 04/19/2024 6: 24 PM EDT Last Filed Vital Signs Vital Sign Reading Time Taken Comments Blood Pressure 149/97 05/31/2024 11:17 PM EDT Pulse 88 05/31/2024 11:17 PM EDT Temperature 36.4 C (97.5 F) 05/31/2024 11:17 PM EDT Respiratory Rate 16 05/31/2024 11:17 PM EDT Oxygen Saturation 98% 05/31/2024 11:17 PM EDT Inhaled Oxygen Concentration - - Weight 136.1 kg (300 lb) 05/31/2024 11:18 PM EDT Height 193 cm (6' 4 ) 05/31/2024 11:18 PM EDT Body Mass Index 36.52 05/31/2024 11:18 PM EDT Plan of Treatment Not on file Medical Devices Not on file Insurance [employer] M[employer] ACO [address] [place] [id number] [facility] [place] [address] Care Teams Supervisor Keymodule Assembly Relationship Specialty Start Date End Date Pcp, Unknown PCP - General 04/17/24 Additional Source Comments The information contained in this document represents components of the legal health record. It is not the complete legal health record.[facility]
--- OUTSIDE RECORDS SUMMARY | 2025-07-26 00:33 | XMS_ITS | Data Portability ---
Author Organization [facility] [address] Address [address] [place] [address] Assessment No assessment recorded. Plan of Treatment Reminders Order Date Submit Date Provider Last Modified By Organization Details Last Modified Time Details Appointments None recorded. Lab None recorded. Referral None recorded. Procedures None recorded. Surgeries None recorded. Imaging None recorded. Medication Orders indomethaci n 50 mg capsule 2022 023 [id number], [address], [place], [id number], 14:37:25 Patient TargetsNo targets recorded. Patient InstructionsNo instructions recorded. Reason for Referral None Reported. Problems Name Problem SNOMED Code Status Onset Date Resolution Date Notes Provider Name and Address Organization Details Recorded Time Hypertensive disorder 36152983 Active 2022 [place] - [facility] 13:54:57 Attention deficit hyperactivity disorder 057796688 Active 2022 [place] - [facility] 3 13:55:05 Obsessive-comp ulsive disorder 292026630 Active 2022 T[place] - [facility] 3 13:55:17 Depressive disorder 41634029 Active 2022 TERE [place] - [facility] 3 13:55:21 Anxiety 91300124 Active 2022 TERE [place], [place] - [facility] 13:55:26 Problem Notes None recorded. Medical Equipment None Reported. Allergies No known drug allergies Medications Name Sig Start Date Stop Date Status Note LastModified by Organization Details LastModified Time indomethacin 50 mg capsule Take 1 capsule 3 times a day by oral route for 10 days. 2022 active Not Available Not Available Not Avai lable Vitals Date Recorded Body height Body mass index (BMI) Body mass index (BMI) [Percentile] Per age and sex Body weight Pain severity - 0-10 verbal numeric rating [Score] - Reported Respiratory rate Oxygen saturation Heart rate Body temperature Systolic And Diastolic Provider Name and Address Organization Details Last Updated DateTime 3 193.04 cm 34.9 kg/m2 99 % 874234. 01 g 10 20 /min 99 % 78 /min 97.9 [degF] 130/89 mm[Hg] TERE YOUNG [employer] 13:57:35 Social History Question Answer Notes LastModified by Organizat [employer] Details LastModified Time Tobacco Smoking Status Current Every Day Smoker TERE [place] - [facility] 12/29/2022 13:56:38 Which Illicit Or Recreational Drugs Have You Used? Marijuana Information not available 12/29/2022 How Much Tobacco Do You Smoke? 0.25 PPD [email or web address] Information not available 12/29/2022 Have You Recently Traveled Abroad? No [email or web address] Information not available 12/29/2022 Sex: Unknown Functional Status Question Answer Note LastModified by Organ[employer]at [employer] Details LastModified Time Do you use any illicit or recreational drugs? Yes [email or web address] Information not available 12/29/2022 Do you or have you ever used any other forms of tobacco or nicotine? No [email or web address] Information not available 12/29/2022 What is your level of alcohol consumption? Occasional [email or web address] Information not available 12/29/2022 Mental Status None recorded. Family History Relationship Description Onset Age of this Age Resolved Age Notes LastModified by Organization Details LastModified Time Father No current problems or disability [email or web address] Not available 12/29 13:56:16 Mother No current problems or disability [email or web address] Not available 12/29 13:56:16 Medical History No medical history recorded. Past Encounters Encounter ID Performer Location Encounter Start Date Encounter Closed Date Diagnosis/Indication Diagnosis SNOMED-CT Code Diagnosis ICD10 Code Diagnosis IMO Codes Diagnosis Note [id number] [facility] [address] [place] [address] 12/29/2022 11:05:56 01/06/2023 20:06:39 Left without being seen [id number] 9102 Z53.21 [id number] Vanda Restrepo MD [address] [place] [address] 12/29/2022 11:38:30 12/29/2022 14:39:36 Pain of toe of right foot 1724024817 60497 M79.674 Gouty arth ritis of toe 222934836 M10.079 Differenti al is Gout versus, other inflammato ry arthritis versus infective causethere is no acute injury or history of over use and no break or trauma/kenia ak to skinAdvise d to start the medication to treat as gout and follow up in 3 days if there is no improvemen t Health Concerns Section Related Observation LastModified by Organization Detai ls LastModified Time None Recorded Concern Status LastModified by Organization Details LastModified Time None Recorded Advance Directives Directive None Recorded Payers Insurance Date Sequence Insurance Name Policy Number Policy Macias Covered Member ID Macias Member ID Guarantor Name 12/29/2022 1 [facility] ([facility] - [facility]) [place] Jayson Quiroz [id number] Jayson Quiroz
[2025-07-26 00:34] LABS: MANUAL DIFF FLAG NO
--- OUTSIDE RECORDS SUMMARY | 2025-07-26 00:34 | XMS_ITS | Clinical Summary ---
Author Organization [facility] Address [address] [place] [address] Phone Care Team Providers Care Energy Efficiency Finance Manager Name Role Phone Sandra Interiano MD Primary Care Provider [phone] Allergies No known active allergies Medications hydrOXYzine HCL (ATARAX) 10 mg tablet Take 1 tablet (10 mg total) by mouth 3 (three) times a day if needed for anxiety. for up to 360 days 06/22/2024 Active cholecalciferol (VITAMIN D-3) 50 mcg (2,000 unit) tablet Take 1 tablet (2,000 Units total) by mouth 1 (one) time each day. 06/22/2024 Active lisinopriL (PRINIVIL,ZESTRI L) 10 mg tablet Take 1 tablet (10 mg total) by mouth 1 (one) time each day. 30 each 11 09/22/2024 Active Active Problems Problem Noted Date Diagnosed Date Primary hypertension 09/22/2024 Renal artery stenosis (CMS/HCC V24) 09/22/2024 Palpitations 07/11/2024 PTSD (post-traumatic stress disorder) 12/08/2023 Obsessive-compulsive disorder 12/08/2023 Obesity (BMI 30-39.9) 12/08/2023 Depression 12/08/2023 Attention deficit hyperactivity disorder (ADHD) 12/08/2023 Asperger's syndrome 12/08/2023 Encounters Date Type Department Care Team Description 05/01/2025 9:00 AM EDT Office Visit Internal Medicine [facility] [address] [facility] [address] [place] [address] Sandra Interiano MD Asperger's syndrome (Primary Dx); Obsessive-compulsive disorder, unspecified type; Attention deficit hyperactivity disorder (ADHD), unspecified ADHD type; Depression, unspecified depression type; PTSD (post-traumatic stress disorder); Obesity (BMI 30-39.9); Primary hypertension; Gout involving toe of right foot, unspecified cause, unspecified chronicity from Last 3 Months Medical History Medical History Date Comments Obesity (BMI 30-39.9) 12/08/2023 DX:Obesity (BMI 30-39.9) Asperger's syndrome 12/08/2023 DX:Asperger' s syndrome Attention deficit hyperactiv ity disorder (ADHD) 12/08/2023 DX:Attention deficit hyperac tivity disorder (ADHD) Obsessive-compulsive disorder 12/08/2023 DX :Obsessive-compulsive disorder Depression 12/08/2023 DX:Depression PTSD (post-traumatic stress disorder) 12/08/2023 DX:PTSD (post-traumatic stress disorder) Family History Medical History Relation Name Comments Thyroid disease Maternal Grandmother Thyroid disease Mother Obesity Paternal Grandmother Other: kidney prob Sister Relation Name Status Comments Maternal Grandmother Mother Paternal Grandmother Sister Social History Tobacco Use Types Packs/Day Years Used Date Smoking Tobacco: Some Days Cigarettes Smokeless Tobacco: Never Alcohol Use Standard Drinks/Week Comments Yes 0 (1 standard drink = 0.6 oz pur e alcohol) Sex and Gender Information Value Date Recorded Sex Assigned at Not on file Legal Sex Male 11:02 AM EDT Gender Identity Not on file Sexual Orientation Not on file Obstetrics History Last Filed Vital Signs Vital Sign Reading Time Taken Comments Blood Pressure 136/74 05/01/2025 9:16 AM EDT Pulse 73 05/01/2025 9:16 AM EDT Temperature 36.4 C (97.5 F) 05/01/2025 9:16 AM EDT Respiratory Rate - - Oxygen Saturation 97% 05/01/2025 9:16 AM EDT Inhaled Oxygen Concentration - - Weight 122 kg (270 lb) 05/01/2025 9:16 AM EDT Height 195.6 cm (6' 5 ) 05/01/2025 9:16 AM EDT Body Mass Index 32.02 05/01/2025 9:16 AM EDT Plan of Treatment Health Maintenance Due Date Last Done Comments HPV Vaccines (1 - Male 3-dos e series) 2018 Meningococcal B Vaccine (1 o f 2 - Standard) 2019 DTaP,Tdap,and Td Vaccines (1 - Tdap) 2022 Hepatitis B Vaccines (1 of 3 - 19+ 3-dose series) 2022 Pneumococcal Vaccine: Pediat rics (0 to 5 Years) and At-Risk Patients (6 to 49 Years) (1 of 2 - PCV) 2022 HIV Screening 03/17/2024 Social Influencers of Health Screening 03/17/2024 Depression Screening 08/23/2024 04/22/2024 Hypertension/CHF/CAD Annual BMP Blood Test 12/09/2024 12/10/2023 COVID-19 Vaccine (1 - 2024-2 6 season) 2025 Influenza Vaccine (#1) 2025 Cholesterol Screening (Lipid Panel) 12/09/2028 12/10/2023 RSV Immunization Adult Patie nts (1 - 1-dose 75+ series) 2078 Hepatitis C Screening Completed 12/10/2023 HIB Vaccines Aged Out No longer eligi ble based on patient's age to complete this topic Hepatitis A Vaccines Aged Out No long er eligible based on patient's age to complete this topic IPV Vaccines Aged Out No longer eligi ble based on patient's age to complete this topic MMR Vaccines Aged Out No longer eligi ble based on patient's age to complete this topic Meningococcal ACWY Vaccine Aged Out N o longer eligible based on patient's age to complete this topic RSV Immunization Patients Un basia 20 months Aged Out No longer eligible b ased on patient's age to complete this topic Varicella Vaccines Aged Out No longer eligible based on patient's age to complete this topic Procedures Procedure Name Priority Date/Time Associated Diagnosis Comments DEPRESSION SCREENING Routine 04/22/2024 HEPATITIS C SCREENING Routine 12/10/2023 ANNUAL BMP BLOOD TEST Routine 12/10/2023 LIPID PANEL Routine 12/10/2023 from Last 3 Months or Most Recently Relevant to Health Maintenance Results * Depression Screening (04/22/2024) Pathologist formerly [facility] Depression Screening Abstracted [facility] Provider HEALTH MAINTENANCE Final Result * Annual BMP Blood Test (12/10/2023) Pathologist formerly [facility] Annual BMP Blood Test Abstracted [facility] Provider HEALTH MAINTENANCE Final Result * Hepatitis C Screening (12/10/2023) Pathologist formerly [facility] Hepatitis C Screening Abstracted [facility] Provider HEALTH MAINTENANCE Final Result * (ABNORMAL) Lipid panel (12/10/2023) [facility] LDL/HDL Ratio 6(A) 0 - 4 Triglycerides 164(A) 0 - 150 mg/dL Cholesterol 195 0 - 200 mg/dL HDL 34(A) >=40 mg/dL LDL Cholesterol 129(A) 0 - 100 mg/dL Blood Venous blood specimen / Unknown [facility] Provider LAB BLOOD ORDERABLES Maryjo l Result from Last 3 Months or Most Recently Relevant to Health Maintenance Insurance [facility] Care Teams Energy Efficiency Finance Manager Relationship Specialty Start Date End Date Sandra Interiano MD [address] [place] [address] [place] [address] PCP - General 09/23/23
[2025-07-26 00:36] LABS: Hematocrit 47.8 % (42.0-52.0); Hemoglobin 16.9 g/dl (14.0-18.0); Imm Gran Abs Auto 0.06 X10*3/uL (0.00-0.03); Imm Gran Pct Auto 0.4 % (0.0-0.4); Lymphocytes Absolute Auto 2.5 X10*3/uL (1.2-4.9); Mean Corpuscular HGB Conc 35.4 g/dl (31.0-36.0); Mean Corpuscular Hemoglobin 30.6 pg (27.0-33.0); Mean Corpuscular Volume 86.6 fL (80.0-98.0); NRBC Abs Auto 0.000 X10*3/uL (0.0-0.012); NRBC Pct Auto 0.0 /100WBC (0.0-0.2); Platelet Count 280 X10*3/uL (160-400); Red Blood Count 5.52 X10*6/uL (4.60-5.80); White Blood Count 15.8 X10*3/uL (4.8-10.8)
[2025-07-26 00:47] LABS: Alanine Aminotransferase 43 U/L (0-40); Albumin Level 4.7 g/dL (3.5-5.0); Alkaline Phosphatase 76 U/L (39-117); Anion Gap 15 (12-20); Aspartate Amino Transferase 26 U/L (5-37); Blood Urea Nitrogen 15 mg/dL (9-16); Calcium 9.8 mg/dL (8.4-10.2); Carbon Dioxide 25 mmol/L (22-29); Chloride 105 mmol/L (96-108); Creatinine Clr Calc Pharmacy 154.1; Estimated Glomerular Filt Rate > 60; Potassium 4.1 mmol/L (3.3-5.1); Sodium 141 mmol/L (135-145); Total Protein 7.5 g/dL (6.5-8.0)
[2025-07-26 00:52] LABS: IDNOW Serial# 6674DD1D; Strep A Nucleic Acid Negative (Negative)
[2025-07-26 00:58] LABS: Troponin-I High Sensitivity < 2.7 ng/L (<3.5-35.0)
[2025-07-26 01:10] LABS: Resp Syncy Virus RNA Qual PCR NEGATIVE (Negative); SARS COV2 PCR INHOUSE NEGATIVE (Negative)
--- NOTE | 2025-07-26 01:31 | ED.GENADULT ---
HPI - General Adult General Chief complaint: General Medical Stated complaint: flu like Time Seen by Provider: 07/26/25 01:31 History of Present Illness ED Provider: Grace PINTO narrative: The patient is a 20-year-old male who has been feeling sick for about 4 days. He started to feel sick this past Wednesday. He has been coughing a lot. He has missed 3 days of school (Wednesday, Wednesday, and today, Wednesday). He has felt that he has had a fever and chills. He has been using [id number] cold remedies. He has a history of hypertension in his on lisinopril. He has a history of depression and is on psychiatric medications. Related Data Previous Rx's ?Medication ?Instructions ?Recorded cephalexin 500 mg capsule 500 mg PO BID #14 caps 04/07/22 sulfamethoxazole 800 1 tab PO BID #14 tabs 04/07/22 mg-trimethoprim 160 mg tablet (Bactrim DS) naproxen 500 mg tablet 500 mg PO BID PRN pain 10 days #20 08/26/24 tabs prednisone 20 mg tablet 40 mg (2 x 20 mg) PO DAILY 5 days 08/26/24 #10 tabs doxycycline monohydrate 100 mg 100 mg PO BID #14 caps 07/26/25 capsule Allergies Allergy/AdvReac Type Severity Reaction Status Date / Time No Known Allergies Allergy Verified 07/26/25 00:11 Review of Systems Review of Systems: Yes all other systems are reviewed and are negative PMFSH Past Medical History Medical History Anxiety and depression Social History Social History Alcohol intake: current Alcohol intake frequency: holidays/special occasions only Alcohol type: beer and hard liquor Smoked in Last 30 Days: Yes Use of substances other than those prescribed or required for medical reasons: No Advance Directives: No Advance Directives Information Provided: Yes Do you have a plan to hurt others: No Plan Physical Exam ED Vital Signs: Vital Signs - 24 hr 07/26/25 00:08 07/26/25 01:32 07/26/25 02:13 Temperature 98.2 F 98.3 F 98.3 F Pulse Rate 98 82 82 Respiratory Rate 20 16 16 Blood Pressure 144/81 H 144/85 H 144/85 H Pulse Oximetry 99 96 96 Oxygen Delivery Method Room Air Room Air Room Air BMI result Body Mass Index 30.8 Const Other: The patient has a large 20-year-old male who was awake and alert. He was sneezing and coughing occasionally but did not seem acutely toxic. He was pleasant and cooperative. Orientation/consciousness: patient oriented x3 HENMT Other: The face is symmetrical. ?Mucous membranes moist. Eyes Other: Pupils are round equal, conjunctivae are clear, extraocular movements intact Neck Neck: Yes normal visual inspection, Yes full ROM and Yes no lymphadenopathy Resp Other: I do not hear any definite wheezes or crackles Effort & Inspection: normal respiratory effort Auscultation: clear to auscultation bilaterally Cardio Rate: regular rate Rhythm: regular rhythm Heart sounds: S1 normal heart sound present and S2 normal heart sound present GI Other: The abdomen is soft and nontender Skin Other: The skin is dry and unremarkable Neuro General: patient oriented x3, gait normal, tone normal, moves all extremities, no focal motor deficits and CN's II-XI intact bilaterally Extrem Other: There is no calf swelling or tenderness. No asymmetry. No peripheral edema. Medications Administered Discontinued Medications Generic Name Dose Route Start Last Admin Trade Name Freq PRN Reason Stop Dose Admin Doxycycline Monohydrate 100 mg 07/26/25 02:00 07/26/25 02:07 Doxycycline Monohydrate 100 Mg Capsule PO 07/26/25 02:01 100 mg ONCE ONE Administration Medical Decision Making Medical Decision Making [facility] Narrative: The patient is a 20-year-old male with a history of hypertension but no history of chronic lung disease who presents with a 4 days of respiratory symptoms. There is a question of a small left lower lobe pneumonia. He has hemodynamically stable and otherwise well. He is not septic. He will be started on doxycycline 100 mg b.i.d. x1 week. He should follow up with his regular doctor at [facility] in [place]. Lab Data 07/26/25 00:24 07/26/25 00:24 Labs: Lab Results 07/26/25 Range/Units 00:24 WBC 15.8 H (4.8-10.8) X10*3/uL RBC 5.52 (4.60-5.80) X10*6/uL Hgb 16.9 (14.0-18.0) g/dl Hct 47.8 (42.0-52.0) % MCV 86.6 (80.0-98.0) fL MCH 30.6 (27.0-33.0) pg MCHC 35.4 (31.0-36.0) g/dl RDW 11.4 (11.0-16.0) % Plt Count 280 (160-400) X10*3/uL MPV 10.8 (9.4-12.4) fL Immature Gran % (Auto) 0.4 (0.0-0.4) % Neut % (Auto) 69.6 (45-73) % Lymph % (Auto) 16.1 L (20-40) % [place] % (Auto) 7.8 (2-11) % Eos % (Auto) 5.4 H (0-4) % Baso % (Auto) 0.7 (0-2) % Lymph # (Auto) 2.5 (1.2-4.9) X10*3/uL [place] # (Auto) 1.2 (0.1-1.2) X10*3/uL Eos # (Auto) 0.9 H (0.0-0.4) X10*3/uL Baso # (Auto) 0.1 (0.0-0.2) X10*3/uL Abs Immat Gran (auto) 0.06 H (0.00-0.03) X10*3/uL Absolute Neuts (auto) 11.0 H (2.0-8.3) x10*3/uL Absolute Nucleated RBC 0.000 (0.0-0.012) X10*3/uL Nucleated RBC % (auto) 0.0 (0.0-0.2) /100WBC Sodium 141 (135-145) mmol/L Potassium 4.1 (3.3-5.1) mmol/L Chloride 105 (96-108) mmol/L Carbon Dioxide 25 (22-29) mmol/L Anion Gap 15 (12-20) BUN 15 (9-16) mg/dL Creatinine 1.07 (0.5-1.4) mg/dL Estim Creat Clear Calc 154.1 Estimated GFR > 60 Random Glucose 123 H (60-115) mg/dL Calcium 9.8 (8.4-10.2) mg/dL Total Bilirubin 0.7 (0.0-1.0) mg/dL AST 26 (5-37) U/L ALT 43 H (0-40) U/L Alkaline Phosphatase 76 (39-117) U/L Troponin I High Sens < 2.7 (<3.5-35.0) ng/L Total Protein 7.5 (6.5-8.0) g/dL Albumin 4.7 (3.5-5.0) g/dL Influenza Type A (PCR) NEGATIVE (Negative) Influenza Type B (PCR) NEGATIVE (Negative) RSV RNA Qual (PCR) NEGATIVE (Negative) SARS-CoV-2 RNA (RT-PCR) NEGATIVE (Negative) S. pyogenes GrpA SHILPA Negative (Negative) Discharge Plan Discharge Clinical Impression: Pneumonia Patient Disposition: Home, Self-Care Instructions: Pneumonia (ED) Additional Instructions: I think you may have a small pneumonia in your left lower lung. You has been started on the antibiotic doxycycline to help treat this infection. Please take the antibiotic 2 times a day. Keep yourself well hydrated. Drink lot of fluids. Hot teas and chicken broth are good. My hope is you will be feeling sufficiently better by Wednesday to return to school. Please call your regular doctor's office for a follow up appointment next week. Return to the emergency room if significantly worse. Prescriptions: New doxycycline monohydrate 100 mg capsule 100 mg PO BID Qty: 14 0RF No Action sulfamethoxazole-trimethoprim [Bactrim DS] 800-160 mg tablet 1 tab PO BID Qty: 14 0RF cephalexin 500 mg capsule 500 mg PO BID Qty: 14 0RF prednisone 20 mg tablet 40 mg PO DAILY 5 Days Qty: 10 0RF naproxen 500 mg tablet 500 mg PO BID PRN (Reason: pain) 10 Days Qty: 20 0RF Referrals: [facility] [Provider Group] Stand Alone Forms: Work/School Release Interventions: ED Discharge Assessment Last Done: 07/26/25 02:13 Discharge Date/Time: 07/26/25 02:14 Print Language: Yi
[2025-07-26 01:32] VITALS: BP 144/85; PULSE 82; RESP 16; TEMP 36.8; O2SAT 96
[2025-07-26 02:13] VITALS: BP 144/85; PULSE 82; RESP 16; TEMP 36.8; O2SAT 96
== END 2025-07-26 02:14 | disposition home or self-care (01) ==
PROVIDERS: Emergency Provider Emergency Medicine
DX: J18.9 Pneumonia, unspecified organism (principal); R05.9 Cough, unspecified; R07.9 Chest pain, unspecified; I10 Essential (primary) hypertension; Z79.899 Other long term (current) drug therapy; Z03.818 Encounter for observation for suspected exposure to other biological agents ruled out
CPT/HCPCS: 36415; 71045; 80053; 84484; 85025; 87637; 87651; 93005; 99283; 99284

== ENCOUNTER → 2025-07-26 00:19 | Outpatient (BNV) | payer OTHER, SELFPAY | PROVIDERS: Emergency Provider Emergency Medicine; Visit Provider Internal Medicine | DX: R07.9 Chest pain, unspecified (principal) | CPT/HCPCS: 93010 ==

== ENCOUNTER 2025-08-01 11:34 | Emergency (ER) | payer OTHER, SELFPAY ==
--- NOTE | ~2025-08-01 | XR_ITS ---
EXAMINATION: XR CHEST CLINICAL INFORMATION: cough, recent pneumonia COMPARISON: None available. TECHNIQUE: PA and lateral views FINDINGS: No hyperinflation. No consolidation, pleural effusion or pneumothorax. Cardiomediastinal silhouette size is normal. Osseous structures are intact. XR/XR chest 2V IMPRESSION: No acute airspace disease. Electronically signed by: Sathish Gresham MD 08/01/2025 12:25 PM [facility]
[2025-08-01 12:08] VITALS: BP 135/88; PULSE 87; RESP 20; TEMP 36.6; O2SAT 97; BMI 33.5
--- NOTE | 2025-08-01 12:11 | ED_ITS ---
HPI - URI/Sore Throat General Chief Complaint: Upper Respiratory Symptoms Stated Complaint: General Medical Time Seen by Provider: 08/01/25 14:01 Source: patient Mode of arrival: ambulatory Limitations: no limitations History of Present Illness ED Provider: Alvina Crump PA-C HPI Narrative: Patient is a 20 year old assigned male at with a history of anxiety, depression, and recent PNA presenting to the emergency department today with a cough and an episode of difficulty breathing. Patient states that he was recently diagnosed with pneumonia and finished his antibiotics. Patient states that last night he woke up in a coughing fit and feeling as though he couldn't breathe. Patient states that he is able to breathe now. Patient denies any other complaints at this time. Related Data Previous Rx's ?Medication ?Instructions ?Recorded cephalexin 500 mg capsule 500 mg PO BID #14 caps 04/07 sulfamethoxazole 800 1 tab PO BID #14 tabs mg-trimethoprim 160 mg tablet (Bactrim DS) naproxen 500 mg tablet 500 mg PO BID PRN pain 10 da ys #20 08/26/24 tabs prednisone 20 mg tablet 40 mg (2 x 20 mg) PO DAILY 5 days 08/26/24 #10 tabs doxycycline monohydrate 100 mg 100 mg PO BID #14 caps 07/26/25 capsule albuterol sulfate 90 mcg/actuation 2 puff inhalation Q 6H PRN 08/01/25 aerosol inhaler (Ventolin HFA) shortness of breath or wheezing #8.5 grams benzonatate 100 mg capsule 100 mg PO BID PRN cough 7 d ays #14 08/01/25 caps Allergies Allergy/AdvReac Type Severity Reaction Status Date / Time No Known Allergies Allergy Verified 08/01/25 12:11 Review of Systems 2 Constitutional: Constitutional: Reports as per HPI Eyes: Eyes: Reports as per HPI ENT: Reports as per HPI Cardiovascular: Cardiovascular: Reports as per HPI Respiratory: Respiratory: Reports as per HPI Gastrointestinal: Gastrointestinal: Reports as per HPI Genitourinary: Genitourinary: Reports as per HPI Musculoskeletal: Musculoskeletal: Reports as per HPI Integumentary/Breasts: Skin/Breast: Reports as per HPI Neurologic: Reports as per HPI Psychiatric: Psychiatric: Reports as per HPI Endocrine: Endocrine: Reports as per HPI Hematologic/Lymphatic: Hematologic/Lymphatic: Reports as per HPI Allergic/Immunologic: Allergic/Immunologic: Reports as per HPI [facility] Past Medical History Attestation statement: The following information was validated with the patient. Source: old records reviewed and nursing notes reviewed Medical History Anxiety and depression Social History Social History Alcohol intake: current Alcohol intake frequency: holidays/special occasions only Alcohol type: beer and hard liquor Advance Directives: No Advance Directives Information Provided: Yes Do you have a plan to hurt others: No Plan Physical Exam 2 Vital Signs: Vital Signs: Last Vital Signs Temp 97.9 F 08/01/25 14:15 Pulse 87 08/01/25 14:15 Resp 20 08/01/25 14:15 BP 135/88 08/01/25 14:15 Pulse Ox 97 08/01/25 14:15 O2 Del Method Room Air 08/01/25 14:15 BMI result Body Mass Index 33.5 Const: General: cooperative, no acute distress, alert and awake Nutritional Appearance: well nourished Orientation/consciousness: patient oriented x3 HEENT: Head: Yes normal to inspection and Yes atraumatic Ears: hearing grossly normal bilaterally and external ears normal General nose exam: Normal external nose present, no nasal discharge noted and no epistaxis Face and sinus: Yes normal facial exam, No abrasion and No laceration Mouth: Normal oral and palatal mucosa present, no drooling and no muffled voice Eyes: General: appearance normal, both eyes and all related structures P eriorbital: periorbital findings normal Eyelids: Yes eyelids normal C onjunctivae: conjunctivae normal Pupils: Equal, round and reactive pupils present EOM: EOMs intact bilaterally Neck: Neck: Yes normal visual inspection and Yes full ROM Resp: Effort & Inspection: normal respiratory effort and able to speak in complete sentences Neuro: General: patient oriented x3, moves all extremities and CN's II-XI intact bilaterally Cranial nerves: Yes Equal, round and reactive pupils present Cognition (Neuro): normal cognition Extrem: General: Yes normal to inspection, Yes full ROM and Yes capillary refill normal Psych: Appearance: grossly normal Mental Status: mental status grossly normal Affect: normal affect Attitude: cooperative Thought process: N ormal thought process present Thought content: Normal thought content present Insight: Good insight present (Psych) Course Course Course Narrative: This is an RME: Additional HPI, ROS, PE not included below will be deferred to primary provider. RME assessment and note performed by: Martha Washington PA-C This is a 66-male who presents to the ER with complaints of concern for his symptoms Not improving. Patient was seen in the ED last week and was diagnosed with pneumonia, discharged on doxycycline which he has been taking however still continues to have shortness for breath, and a hard time breathing. Still has a ongoing cough. Plan: labs, chest x-ray, further ER evaluation needed. Medical Decision Making Medical Decision Making [facility] Narrative: Patient is a 20 year old assigned male at with a history of anxiety, depression, and recent PNA presenting to the emergency department today with a cough and an episode of difficulty breathing. Patient's physical exam was as noted in the physical exam portion of this note. Patient's blood work showed a slightly elevated WBC count of 11.5 but otherwise unremarkable. Patient was recently on prednisone which is likely contributing to his slightly elevated WBC count. Patient's chest x-ray showed no acute process. Patient's clinical presentation is most consistent with continued cough and potentially sleep apnea. I explained my physical exam findings as well as all test results to the patient. I answered all questions asked by the patient. I stressed the importance of the patient taking his medication as directed (either prescribed or as the over the counter packaging recommends). I stressed the importance of the patient following up with his primary care provider. I stressed the importance of the patient returning to the emergency department immediately if his symptoms were to worsen or if he were to develop any dizziness, shortness of breath, difficulty breathing, chest pain, blurry vision, loss of vision, nausea, vomiting, abdominal pain, fever, chills, back pain, or any other complaints. Patient verbalized agreement and understanding with this treatment plan and discharge. Differential Diagnosis Differential Diagnoses: The differential diagnosis associated with the presentation includes Cough Sleep apnea PNA Admission/Observation Consideration of admission/observation: Escalation of care including admission/observation considered Patient would have been admitted to the hospital had his work up had any findings where hospital admission was appropriate and his clinical presentation warranted hospital admission. Lab Data [facility] Lab Attestation statement: I reviewed the patient's lab results. My interpretation of these results are in the MDM Rationale portion of this note. 08/01/25 12:25 08/01/25 12:25 Labs: Lab Results 08/01/25 Range/Units 12:25 WBC 11.5 H (4.8-10.8) X10*3/uL RBC 5.83 H (4.60-5.80) X10*6/uL Hgb 17.6 (14.0-18.0) g/dl Hct 50.8 (42.0-52.0) % MCV 87.1 (80.0-98.0) fL MCH 30.2 (27.0-33.0) pg MCHC 34.6 (31.0-36.0) g/dl RDW 11.3 (11.0-16.0) % Plt Count 332 (160-400) X10*3/uL MPV 10.4 (9.4-12.4) fL Immature Gran % (Auto) 0.8 H (0.0-0.4) % Neut % (Auto) 64.1 (45-73) % Lymph % (Auto) 19.0 L (20-40) % Darke % (Auto) 6.5 (2-11) % Eos % (Auto) 8.6 H (0-4) % Baso % (Auto) 1.0 (0-2) % Lymph # (Auto) 2.2 (1.2-4.9) X10*3/uL Darke # (Auto) 0.8 (0.1-1.2) X10*3/uL Eos # (Auto) 1.0 H (0.0-0.4) X10*3/uL Baso # (Auto) 0.1 (0.0-0.2) X10*3/uL Abs Immat Gran (auto) 0.09 H (0.00-0.03) X10*3/uL Absolute Neuts (auto) 7.4 (2.0-8.3) x10*3/uL Absolute Nucleated RBC 0.000 (0.0-0.012) X10*3/uL Nucleated RBC % (auto) 0.0 (0.0-0.2) /100WBC Sodium 143 (135-145) mmol/L Potassium 4.1 (3.3-5.1) mmol/L Chloride 106 (96-108) mmol/L Carbon Dioxide 30 H (22-29) mmol/L Anion Gap 11 L (12-20) BUN 13 (9-16) mg/dL Creatinine 0.92 (0.5-1.4) mg/dL Estim Creat Clear Calc 186.5 Estimated GFR > 60 Random Glucose 97 (60-115) mg/dL Calcium 9.3 (8.4-10.2) mg/dL Total Bilirubin 0.7 (0.0-1.0) mg/dL Direct Bilirubin 0.2 (0.0-0.5) mg/dL AST 36 (5-37) U/L ALT 63 H (0-40) U/L Alkaline Phosphatase 74 (39-117) U/L Total Protein 7.2 (6.5-8.0) g/dL Albumin 4.5 (3.5-5.0) g/dL Influenza Type A (PCR) NEGATIVE (Negative) Influenza Type B (PCR) NEGATIVE (Negative) RSV RNA Qual (PCR) NEGATIVE (Negative) SARS-CoV-2 RNA (RT-PCR) NEGATIVE (Negative) Independent Interpretation I performed an independent interpretation of an: Plain X-Ray Interpretation: My interpretation is in agreement with the radiologist's impression of this imaging study as written below. EXAMINATION: XR CHEST CLINICAL INFORMATION: cough, recent pneumonia COMPARISON: None available. TECHNIQUE: PA and lateral views FINDINGS: No hyperinflation. No consolidation, pleural effusion or pneumothorax. Cardiomediastinal silhouette size is normal. Osseous structures are intact. XR/XR chest 2V IMPRESSION: No acute airspace disease. Electronically signed by: Sathish Gresham MD 08/01/2025 12:25 PM [facility] Dictated By: Sathish Farnsworth MD Signed By: Electronically signed by Sathish Nieto MD 08/01/25 1225 Radiology Impression Discussion of test interpretation with radiology: I have reviewed the radiologist's reading. Discharge Plan Discharge Clinical Impression: Cough Qualifiers: Cough type: subacute Qualified Code(s): R05.2 - Subacute cough Patient Disposition: Home, Self-Care Instructions: Acute Cough (ED) Additional Instructions: Your work up today is reassuring there is no EMERGENT cause for your symptoms. You may have had an apenic episode and should have a sleep study performed. You have been prescribed a cough suppressant which can be TOXIC to children - so please be sure to keep them out of reach. You have been prescribed an albuterol inhaler - this can be activating and cause difficulty sleeping and increased heart rate. IF you are prescribed home medications and/or you are taking over the counter medications at home - it is very important you continue to do so as prescribed / directed unless told otherwise by a healthcare provider. Follow up with your primary care provider. Do your best to stay well hydrated and rest. Return to the emergency department immediately if your symptoms worsen or if you develop any numbness, tingling, dizziness, shortness of breath, difficulty breathing, chest pain, blurry vision, loss of vision, nausea, vomiting, abdominal pain, fever, chills, back pain, or any other complaints. L If you do not have a primary care provider - call any of the below numbers to establish and follow up with a primary care provider. [facility] Primary Care ([place]) [phone] [place] [address], [address] [facility] Primary Care ([facility]) [phone] [place] [address], [address] [facility], [address] [facility] Primary Care ([facility]) [phone] [place] [address], [address] [facility], [address] [facility] Care ([place]) [phone] [place] [address] [address] [facility], [address] [facility] Family Medicine [phone] [place] [address], [address] Please see the information below about our Patient Portal. If you are not yet enrolled in the [facility] Patient Portal, you will receive an enrollment email invitation following your visit to any [facility] setting. You may also self-enroll in the Patient Portal by visiting our website: [email or web address] The following information is required to access the Patient Portal: - Your [facility] Medical Record Number - Your personal home email address (must match what is in your electronic medical record, Registration staff can assist with this) - Name - Date of Capabilities of the Patient Portal: - Message some providers - View upcoming appointments - Access your health summary, medical history, and visit history - View current conditions and allergies - View procedure and lab results - View your medications, including guidelines, side effects, and precautions - Complete pre-appointment questionnaires requested by your provider - Ready summary reports of your office visits and procedures To access the Patient Portal Mobile [employer], follow these directions: - Search [employer] in the [employer] Store or [employer] Store - Download the Yves - Search for [facility] - Enter your login/password Prescriptions: New benzonatate 100 mg capsule 100 mg PO BID PRN (Reason: cough) 7 Days Qty: 14 0RF albuterol sulfate [Ventolin HFA] 90 mcg/actuation HFA aerosol inhaler 2 puff inhalation Q6H PRN (Reason: shortness of breath or wheezing) Qty: 8.5 0RF No Action sulfamethoxazole-trimethoprim [Bactrim DS] 800-160 mg tablet 1 tab PO BID Qty: 14 0RF cephalexin 500 mg capsule 500 mg PO BID Qty: 14 0RF prednisone 20 mg tablet 40 mg PO DAILY 5 Days Qty: 10 0RF naproxen 500 mg tablet 500 mg PO BID PRN (Reason: pain) 10 Days Qty: 20 0RF doxycycline monohydrate 100 mg capsule 100 mg PO BID Qty: 14 0RF Referrals: [facility] [Provider Group] Referral Note: Call to establish and follow up with a neurologist for sleep study. Stand Alone Forms: Work/School Release Interventions: ED Discharge Assessment Last Done: 08/01/25 14:15 Discharge Date/Time: 08/01/25 14:16 Print Language: [place]
[2025-08-01 12:34] LABS: MANUAL DIFF FLAG NO
[2025-08-01 12:35] LABS: Hematocrit 50.8 % (42.0-52.0); Hemoglobin 17.6 g/dl (14.0-18.0); Imm Gran Abs Auto 0.09 X10*3/uL (0.00-0.03); Imm Gran Pct Auto 0.8 % (0.0-0.4); Lymphocytes Absolute Auto 2.2 X10*3/uL (1.2-4.9); Mean Corpuscular HGB Conc 34.6 g/dl (31.0-36.0); Mean Corpuscular Hemoglobin 30.2 pg (27.0-33.0); Mean Corpuscular Volume 87.1 fL (80.0-98.0); NRBC Abs Auto 0.000 X10*3/uL (0.0-0.012); NRBC Pct Auto 0.0 /100WBC (0.0-0.2); Platelet Count 332 X10*3/uL (160-400); Red Blood Count 5.83 X10*6/uL (4.60-5.80); White Blood Count 11.5 X10*3/uL (4.8-10.8)
[2025-08-01 12:49] LABS: Alanine Aminotransferase 63 U/L (0-40); Albumin Level 4.5 g/dL (3.5-5.0); Alkaline Phosphatase 74 U/L (39-117); Anion Gap 11 (12-20); Aspartate Amino Transferase 36 U/L (5-37); Blood Urea Nitrogen 13 mg/dL (9-16); Calcium 9.3 mg/dL (8.4-10.2); Carbon Dioxide 30 mmol/L (22-29); Chloride 106 mmol/L (96-108); Creatinine Clr Calc Pharmacy 186.5; Estimated Glomerular Filt Rate > 60; Potassium 4.1 mmol/L (3.3-5.1); Sodium 143 mmol/L (135-145); Total Protein 7.2 g/dL (6.5-8.0)
[2025-08-01 13:16] LABS: Resp Syncy Virus RNA Qual PCR NEGATIVE (Negative); SARS COV2 PCR INHOUSE NEGATIVE (Negative)
[2025-08-01 14:15] VITALS: BP 135/88; PULSE 87; RESP 20; TEMP 36.6; O2SAT 97
== END 2025-08-01 14:16 | disposition home or self-care (01) ==
PROVIDERS: Physician Assistant Medical; Emergency Provider Emergency Medicine
DX: R05.2 Subacute cough (principal); Z03.818 Encounter for observation for suspected exposure to other biological agents ruled out
CPT/HCPCS: 71046; 80048; 80076; 85025; 87637; 99282; 99283

== ENCOUNTER → 2025-08-01 12:13 | Outpatient (BNV) | payer OTHER, SELFPAY | PROVIDERS: Visit Provider Radiology Diagnostic Radiology | DX: J18.9 Pneumonia, unspecified organism (principal) | CPT/HCPCS: 71046 ==